=== PATIENT | female | born 1980 | race Caucasian/White ===

== ENCOUNTER → 2017-09-27 11:41 | Outpatient (CLI) | payer BC, SELFPAY ==
[2017-10-01 11:35] LABS: HPV Reflexed? NOT INDICATED
== END ==
PROVIDERS: Visit Provider Obstetrics & Gynecology
DX: Z12.4 Encounter for screening for malignant neoplasm of cervix (principal)
CPT/HCPCS: 88175; G0145

== ENCOUNTER → 2022-12-08 | Outpatient (CLI) | payer OTHER, SELFPAY ==
[2022-12-08 12:42] LABS: Absolute Lymphocyte Count 1.52 X10^3/uL (0.83-4.51); Absolute Neutrophil Count 2.8 X10^3/uL (2.0-7.7); Basophil# 0.02 X10^3/uL; Basophil% 0.4 % (0-1); Eosinophil# 0.08 X10^3/uL; Eosinophils% 1.7 % (0-5); Hematocrit 40.9 % (37-47); Hemoglobin 13.4 g/dL (12.0-15.0); Lymphocyte # 1.52 X10^3/ul (0.83-4.51); Lymphocyte % 31.6 % (19-41); Mean Corp Hgb Conc 32.8 g/dL (32-36); Mean Corpuscular Hgb 30.2 pg (27.0-32.0); Mean Corpuscular Volume 92.3 fL (81-99); Mean Platelet Vol. 9.9 fl (6.2-12.0); Monocyte# 0.34 X10^3/uL; Monocyte% 7.1 % (0-10); NRBC Flagged by Analyzer 0 % (0-5); Neutrophil # 2.84 X10^3/uL (2.7-7.7); Platelet Count 282 K/mm3 (150-450); RBC Distribution Width CV 12.3 % (11.6-14.6); RBC Distribution Width SD 41.9 fl (35.1-43.9); Red Blood Count 4.43 M/mm3 (4.2-5.4); White Blood Count 4.8 K/mm3 (4.4-11.0)
[2022-12-08 13:22] LABS: AST(SGOT) 18 U/L (15-37); Alanine Aminotransfer ALT/SGPT 28 U/L (13-56); Albumin, Serum 3.7 g/dL (3.2-5.0); Alkaline Phosphatase 49 U/L (45-117); Anion Gap 5 (5-15); BUN 14 mg/dL (7-18); BUN/Creat Ratio 19.7 RATIO (10-20); Calcium,Total 8.8 mg/dL (8.5-10.1); Chloride 108 mmol/L (98-107); Cholesterol 168 mg/dL (200); Creatinine, Serum 0.71 mg/dL (0.55-1.02); EST Glomerular Filtration Rate 96 mL/min (>60); Est Glom Filt Rate - Afr Amer 117 mL/min (>60); Globulin 3.6 g/dL (2.2-4.2); Glucose 108 mg/dL (74-106); High Density Lipoprotein 71 mg/dL; Potassium 4.1 mmol/L (3.5-5.1); Protein, Total 7.3 g/dL (6.4-8.2); Sodium Level 140 mmol/L (136-145); T4 Free Direct 1.11 ng/dL (0.76-1.46); Thyroid Stim Hormone (TSH) 2.24 uIU/mL (0.358-3.74); Triglycerides 41 mg/dL; Very Low Density Lipoprotein 8 mg/dL (5-40)
== END | disposition home or self-care (01) ==
LOC: BIMLAB 11:36
PROVIDERS: PCP Internal Medicine; Referring Provider Internal Medicine; Visit Provider Internal Medicine
DX: R00.2 Palpitations (principal)
CPT/HCPCS: 36415; 80053; 80061; 84439; 84443; 85025

== ENCOUNTER → 2022-12-22 | Outpatient (CLI) | payer OTHER, SELFPAY ==
--- NOTE | 2022-12-22 10:59 | BI_ITS ---
MAMMOGRAPHY - BILATERAL SCREENING REASON FOR EXAM: Female, 42 years old. Routine annual screening examination. PERTINENT HISTORY: Non-contributory. TECHNIQUE: Digital bilateral breast ashwini (3D mammographic acquisition) in the CC and MLO projections. 2-D mediolateral oblique (MLO) and craniocaudad (CC) views of both breasts were obtained. CAD: Full Field Digital Mammography with Computer Added Detection was performed. COMPARISON: None. Baseline examination. FINDINGS: Breast Composition: The breasts are extremely dense, which lowers the sensitivity of mammography. There are no dominant masses or suspicious calcifications. No other significant abnormalities are identified. BI/SCRN MAMM (CAD)W/ASHWINI BILAT IMPRESSION: Negative screening mammogram. Yearly followup mammogram recommended. (A) ASSESSMENT CATEGORY: BIRADS Category 1: Negative. A letter regarding these results will be sent to the patient by the facility within 30 days. Approximately 10% of breast cancers are not detected by mammography. A normal mammogram should not delay biopsy of a clinically suspicious abnormality. [id number] Electronically Signed: Juan Menjivar MD at 12:01 EDT ,
== END | disposition home or self-care (01) ==
LOC: OPBI 10:57
PROVIDERS: PCP Internal Medicine; Referring Provider Internal Medicine; Visit Provider Internal Medicine
DX: Z12.31 Encounter for screening mammogram for malignant neoplasm of breast (principal)
CPT/HCPCS: 77063; 77067

== ENCOUNTER 2023-03-03 17:57 | Emergency (ER) | payer OTHER, SELFPAY ==
[2023-03-03 17:59] VITALS: BP 141/94; PULSE 79; RESP 18; TEMP 36.6; O2SAT 98; BMI 31.1
--- NOTE | 2023-03-03 18:26 | EKG12_ITS ---
Test Reason : CP Blood Pressure : / mmHG Vent. Rate : 093 BPM Atrial Rate : 093 BPM P-R Int : 148 ms QRS Dur : 088 ms QT Int : 380 ms P-R-T Axes : 037 033 020 degrees QTc Int : 472 ms Normal sinus rhythm Normal ECG Confirmed by ELSIE GOMEZ, DEX ([id number]), index editor LOLA HORTON ([id number]) on 03/08/2023 8:32:09 AM Referred By: VALENTINO/PRATIBHA Confirmed By:EDU ZIMMERMAN MD
--- NOTE | 2023-03-03 18:32 | RAD_ITS ---
INDICATION: Chest pain EXAMINATION/TECHNIQUE: X-RAY - XR Chest 1 View COMPARISON: None FINDINGS: LUNGS: No consolidation, edema or effusion. No pneumothorax. MEDIASTINUM AND CARDIOVASCULAR STRUCTURES: Cardiac silhouette not enlarged. Central airways and mediastinal contour are unremarkable. RAD/Chest 1 View (Portable) IMPRESSION: No radiographic evidence of acute cardiopulmonary disease. Electronically Signed: Efrain Chavez MD at 19:06 EDT ,
[2023-03-03] MEDS: Aspirin 81 MG TAB.CHEW 324 MG PO (18:37)
[2023-03-03 18:55] LABS: Absolute Lymphocyte Count 2.14 X10^3/uL (0.83-4.51); Absolute Neutrophil Count 3.7 X10^3/uL (2.0-7.7); Basophil# 0.01 X10^3/uL; Basophil% 0.2 % (0-1); Eosinophil# 0.08 X10^3/uL; Eosinophils% 1.3 % (0-5); Hematocrit 38.2 % (37-47); Hemoglobin 13.1 g/dL (12.0-15.0); Lymphocyte # 2.14 X10^3/ul (0.83-4.51); Lymphocyte % 33.4 % (19-41); Mean Corp Hgb Conc 34.3 g/dL (32-36); Mean Corpuscular Hgb 31.7 pg (27.0-32.0); Mean Corpuscular Volume 92.5 fL (81-99); Mean Platelet Vol. 9.6 fl (6.2-12.0); Monocyte# 0.46 X10^3/uL; Monocyte% 7.2 % (0-10); NRBC Flagged by Analyzer 0 % (0-5); Neutrophil # 3.69 X10^3/uL (2.7-7.7); Neutrophil % 57.6 % (47-70); Platelet Count 280 K/mm3 (150-450); RBC Distribution Width CV 12.6 % (11.6-14.6); RBC Distribution Width SD 42.9 fl (35.1-43.9); Red Blood Count 4.13 M/mm3 (4.2-5.4); White Blood Count 6.4 K/mm3 (4.4-11.0)
[2023-03-03 19:16] LABS: Anion Gap 7 (5-15); BUN 12 mg/dL (7-18); BUN/Creat Ratio 15.3 RATIO (10-20); Calcium,Total 8.6 mg/dL (8.5-10.1); Chloride 106 mmol/L (98-107); Creatinine, Serum 0.78 mg/dL (0.55-1.02); EST Glomerular Filtration Rate 86 mL/min (>60); Est Glom Filt Rate - Afr Amer 104 mL/min (>60); Estimated Creatinine Clearance 78.52 ml/min; Glucose 111 mg/dL (74-106); Potassium 3.7 mmol/L (3.5-5.1); Sodium Level 138 mmol/L (136-145); Troponin-I HS < 3 pg/mL (3.0-54.0)
--- NOTE | 2023-03-03 19:17 | ED.VIS.CHEST ---
HPI History of Present Illness Chief Complaint: Chest Pain Informant: patient Onset/Context/Timing Onset: Weeks (1) Activity at onset: sudden Timing: Intermittent Quality: Positive for Sharp and - (Fluttering) Location: Left Chest and - (Left shoulder, left arm) Worsened By: Nothing Relieved By: Nothing Associated Symptoms: Positive for Lightheadedness and Acid Reflux; Negative for Nausea, Vomiting, Diaphoresis, Dyspnea, Cough, Fever or Palpitations Narrative Narrative: Patient presents with chest pain that has been intermittent over the past week. Patient states it comes on rather suddenly. Patient describes it as sharp pain. Patient states it is over the left upper chest and radiates into her left arm and left shoulder area. Patient also states she has an occasional fluttering sensation. Patient states nothing makes it better and nothing makes it worse. Patient admits to some lightheadedness and acid reflux symptoms. Patient denies any nausea or vomiting. Patient denies any cough or shortness of breath. Patient denies any cardiac or PE risk factors. CVD Risk Factors: Negative for Hypertension, Diabetes, Hypercholesterolemia, Family History 1' </=55 or Smoking PE Risk Factors: Negative for Recent Travel/Surgery, Recent Immobilization, Prior DVT or PE, Cancer or OCP + Smoking + >/=35 PFSH PFSH Medical History Health care maintenance Intermittent chest pain Obesity (BMI 30.0-34.9) Palpitations Home Medications NK 01/19/23 [History Last Taken Unknown] Allergy/AdvReac Type Severity Reaction Status Date / Time No Known Allergies Allergy Verified 03/03/23 18:00 Family History Grandmother Colon cancer Mother Diabetes Grandfather Myocardial infarction, Onset Age: 73 CVA (cerebral vascular accident) Surgical History History of dilation and curettage Social History Smoking Status: Never smoker alcohol intake: current alcohol intake frequency: 3 or more drinks per day Alcohol type: other substance use type: does not use what type of physical activity do you participate in: weight training and other details: CARDIO frequency: 3-4 times per week seatbelt use: always do you feel safe at home: Yes ROS ROS ED Constitutional Constitutional ED: Denies chills or fever(s) Eyes Eyes: Denies blurry vision or change in vision ENT ENT ED: Denies rhinorrhea or sore throat Cardiovascular Cardiovascular: Reports chest pain and palpitations Respiratory/Chest Respiratory/Chest: Denies cough or dyspnea Gastrointestinal Gastrointestinal: Denies abdominal pain, nausea or vomiting Genitourinary Genitourinary ED: Denies dysuria or hematuria Musculoskeletal Musculoskeletal: Reports back pain and neck pain Integumentary Denies abscess or rash Neurologic Neurologic: Denies headache(s) or weakness Allergic/Immunologic Allergic/Immunologic ED: Denies mouth swelling or urticaria EXAM Physical Exam Const Vital Signs: 03/03/23 17:59 03/03/23 18:39 03/03/23 19:31 Temperature 98 F Temperature Source Temporal Pulse Rate 79 84 Respiratory Rate 18 18 Blood Pressure 141/94 H 122/80 H Blood Pressure Mean 109 Pulse Ox 98 98 Oxygen Delivery Method Room Air Room Air Positive well nourished, well developed and obese General Appearance ED: well developed and NAD Nutritional Appearance: obese HEENT normocephalic and atraumatic Eyes PERRL and EOMs intact bilaterally Neck supple and no JVD Chest Wall palpation of chest normal Resp normal respiratory effort and clear to auscultation bilaterally Effort and Inspection: Negative for respiratory distress Cardio regular rate, regular rhythm and no murmurs GI normal to inspection, nondistended, normoactive bowel sounds, soft to palpation, non-tender and non-distended Extremity normal to inspection General Extremety ED: Negative for edema or tenderness General Extremity: Negative for edema Neuro oriented x3, CN's II-XII intact bilaterally and no sensory deficits noted Sensorium / Orientation: awake and alert Motor Exam: strength 5/5 throughout Psych mental status grossly normal Heart Score History: Moderately Suspicious ECG: Normal Age: </= 45 years Risk Factors: No Risk Factors Troponin: </= Normal Limit Score: 1 MDM MDM MDM Narrative Medical decision making narrative: Differential diagnosis includes cardiac dysrhythmia, cardiac ischemia, anxiety, electrolyte abnormality, anemia, pneumonia, pneumothorax, and musculoskeletal pain. Patient is PERC negative and has a Wells score of 0. Therefore, I do not feel this is from a pulmonary embolism. CBC will be obtained to assess for leukocytosis and anemia. Basic metabolic profile will be obtained to assess for electrolyte abnormality and renal function. High-sensitivity troponin will be obtained to assess for cardiac ischemia. Chest x-ray will be obtained to assess for pneumonia and pneumothorax. EKG will be obtained to assess for cardiac dysrhythmia and cardiac ischemia. Lab Data Attestation: I reviewed the patient's lab results. Lab results narrative: CBC was reviewed and was within normal limits. Basic metabolic profile was reviewed and was within normal limits. High-sensitivity troponin was reviewed and was normal at less than 3. Labs: Laboratory Results - last 24 hr 03/03/23 18:10 WBC 6.4 RBC 4.13 L Hgb 13.1 Hct 38.2 MCV 92.5 MCH 31.7 MCHC 34.3 RDW Std Deviation 42.9 RDW Coeff of Sheeba 12.6 Plt Count 280 MPV 9.6 Immature Gran % (Auto) 0.300 Neut % (Auto) 57.6 Lymph % (Auto) 33.4 Hinds % (Auto) 7.2 Eos % (Auto) 1.3 Baso % (Auto) 0.2 Absolute Neuts (auto) 3.7 Absolute Lymphs (auto) 2.14 Nucleated RBC % 0 Sodium 138 Potassium 3.7 Chloride 106 Carbon Dioxide 25.0 Anion Gap 7 BUN 12 Creatinine 0.78 Estim Creat Clear Calc 78.52 Est GFR (MDRD) Af Amer 104 Est GFR (MDRD) Non-Af 86 BUN/Creatinine Ratio 15.3 Glucose 111 H Calcium 8.6 Troponin I High Sens < 3 L Radiography Chest X-Ray - ED: 1 View, Read by ED Physician, Read by Radiologist and No Acute Disease Diagnostic Testing: Clinical Impression(s) from Imaging Studies Chest X-Ray 03/03/23 18:32 IMPRESSION: No radiographic evidence of acute cardiopulmonary disease. Electronically Signed: Efrain Chavez MD at 19:06 EDT , Portable 1 view chest x-ray was obtained. On my independent interpretation, lung ruano are clear. There is normal cardiac silhouette. Bony thorax is normal. There is no acute process noted. Radiologist also interpreted the x-ray and agrees. EKG Initial EKG: Attestation: I personally reviewed and interpreted this EKG as follows: Interpretation: Sinus Rhythm (93) and No Acute Injury Pattern Comments: EKG was obtained. On my independent interpretation, it showed a normal sinus rhythm with a rate of 93. PA interval, QRS interval, and QTc intervals were all normal. Finley was normal. There are no acute ST or T wave changes. Prior EKG tracings: not available for review Prior: No Prior Treatment and Re-Evaluation :: Patient was given aspirin here. Patient was advised of her findings. Patient has a HEART score of 1. Patient was advised that this is low risk for acute cardiac event. Patient was instructed to follow-up with her primary care physician for further evaluation in 5 to 7 days. Patient understood and was agreeable with the plan. All questions were answered. Discharge Plan Triage Chief Complaint: Chest Pain ED Provider: Carlos Alberto Figueroa Dx/Rx/DC Orders Clinical Impression: Intermittent chest pain, Obesity (BMI 30.0-34.9) Instructions: ED Chest Pain, Uncertain Cause Prescriptions: No Action NK Primary Care Provider: Ronak Gant Referrals: Ronak Gant MD [Primary Care Provider] - 5-7 Days Disposition Disposition: Home, Self Care Discharge Date/Time: 03/03/23 19:32
[2023-03-03 19:31] VITALS: BP 122/80; PULSE 84; RESP 18; O2SAT 98
== END 2023-03-03 19:32 | disposition home or self-care (01) ==
PROVIDERS: Emergency Provider Emergency Medicine; PCP Internal Medicine; Visit Provider Emergency Medicine
DX: R07.9 Chest pain, unspecified (principal); E66.9 Obesity, unspecified; R42 Dizziness and giddiness; R00.2 Palpitations; M54.9 Dorsalgia, unspecified; M54.2 Cervicalgia
CPT/HCPCS: 71045; 80048; 84484; 85025; 93005; 99285; A4216

== ENCOUNTER → 2023-10-02 | Outpatient (CLI) | payer OTHER, SELFPAY ==
--- OUTSIDE RECORDS SUMMARY | 2023-10-03 00:31 | XMS RPT_ITS | CCD ---
Author Name Unknown Address [address] [place] [address] Organization [facility] Care Team Providers Care Reconciliation Accountant Name Role Phone PACO MAYEN DO Admitting Unavailable FAHEEM, PACO PETTIT Attending Unavailable PACO MAYEN DO Primary Care Unavailable NO, DOCTOR ON Referring Unavailable NO, DOCTOR ON Consulting Unavailable Problems Problem Classification Problem Date Documented Da te Episodic/Chronic External cause codes: Struck by; against (1 source) Struck by baseball, initial encounter; Translations: [Struck by baseball, initial encounter] Onset: 11-13-2018 Open wounds of head; neck; and trunk (3 sources) Laceration without foreign body of lip, initial encounter; Translations: [Laceration without foreign body of lip, initial encounter] Onset: 11-13-2018 Episodic Results Test Name Value Interpretation Reference Range Facil ity Encounters Encounter Date Encounter Type Care Provider Facility Start: 11-13-2018 End: 11-13-2018 Emergency department patient visit PACO [facility]ESEJ[facility] Payers Date Payer Category Payer Unknown [id number] Unknown [id number] Summary Purpose Family History No Family History Records Found Advance Directives No Advanced Directives Records Found Additional Source Comments INFORMATION SOURCE (unrecogn ized section and content) FOR RECORDS PERTAINING TO PATIENTS WHO ARE OR HAVE BEEN ENROLLED IN A CHEMICAL DEPENDENCY/SUBSTANCEABUSE PROGRAM, SOME INFORMATION MAY BE OMITTED. This clinical summary was aggregated from multiple sources. Caution should be exercised in using it in the provision of clinical care. This summary normalizes information from multiple sources, and as a consequence, information in this document may materially change the coding, format and clinical context of patient data. In addition, data may be omitted in some cases. CLINICAL DECISIONS SHOULD BE BASED ON THE PRIMARY CLINICAL RECORDS. [facility], [facility]. provides no warranty or guarantee of the accuracy or completeness of information in this document.
[2023-10-07 17:07] LABS: HPV APTIMA, High Risk Negative (Negative)
== END | disposition home or self-care (01) ==
PROVIDERS: PCP Internal Medicine; Visit Provider Advanced Practice Midwife
DX: Z12.4 Encounter for screening for malignant neoplasm of cervix (principal)
CPT/HCPCS: 87624; 88175; G0145

== ENCOUNTER → 2024-01-03 | Outpatient (CLI) | payer OTHER, SELFPAY ==
--- NOTE | 2024-01-03 12:13 | BI_ITS ---
MAMMOGRAPHY - BILATERAL SCREENING REASON FOR EXAM: Female, 43 years old. Routine annual screening examination. PERTINENT HISTORY: Non-contributory. TECHNIQUE: Digital bilateral breast ashwini (3D mammographic acquisition) in the CC and MLO projections. 2-D mediolateral oblique (MLO) and craniocaudad (CC) views of both breasts were obtained. CAD: Full Field Digital Mammography with Computer Added Detection was performed. COMPARISON: Comparison is made with prior study dated December 22, 2022. FINDINGS: Breast Composition: The breasts are extremely dense, which lowers the sensitivity of mammography. There are no dominant masses or suspicious calcifications. No other significant abnormalities are identified. There has been no significant change since the prior study. BI/SCRN MAMM (CAD)W/ASHWINI BILAT IMPRESSION: Stable bilateral screening mammogram. Yearly follow-up mammogram recommended. (A) ASSESSMENT CATEGORY: BIRADS Category 1: Negative. A letter regarding these results will be sent to the patient by the facility within 30 days. Approximately 10% of breast cancers are not detected by mammography. A normal mammogram should not delay biopsy of a clinically suspicious abnormality. [id number] Electronically Signed: Juan Menjivar MD at 13:17 EDT ,
== END | disposition home or self-care (01) ==
LOC: OPBI 12:13
PROVIDERS: PCP Internal Medicine; Referring Provider Internal Medicine; Visit Provider Internal Medicine
DX: Z12.31 Encounter for screening mammogram for malignant neoplasm of breast (principal)
CPT/HCPCS: 77063; 77067

== ENCOUNTER → 2024-06-18 | Outpatient (CLI) | payer OTHER, SELFPAY ==
[2024-06-18 13:10] LABS: Absolute Lymphocyte Count 1.48 X10^3/uL (0.83-4.51); Absolute Neutrophil Count 3.7 X10^3/uL (2.0-7.7); Basophil# 0.02 X10^3/uL; Basophil% 0.3 % (0-1); Eosinophil# 0.12 X10^3/uL; Eosinophils% 2.1 % (0-5); Hematocrit 40.6 % (37-47); Hemoglobin 13.2 g/dL (12.0-15.0); Lymphocyte # 1.48 X10^3/ul (0.83-4.51); Lymphocyte % 25.8 % (19-41); Mean Corp Hgb Conc 32.5 g/dL (32-36); Mean Corpuscular Hgb 30.1 pg (27.0-32.0); Mean Corpuscular Volume 92.7 fL (81-99); Mean Platelet Vol. 9.6 fl (6.2-12.0); Monocyte# 0.44 X10^3/uL; Monocyte% 7.7 % (0-10); NRBC Flagged by Analyzer 0 % (0-5); Neutrophil # 3.67 X10^3/uL (2.7-7.7); Neutrophil % 63.9 % (47-70); Platelet Count 292 K/mm3 (150-450); RBC Distribution Width CV 12.1 % (11.6-14.6); RBC Distribution Width SD 41.6 fl (35.1-43.9); Red Blood Count 4.38 M/mm3 (4.2-5.4); White Blood Count 5.7 K/mm3 (4.4-11.0)
[2024-06-18 13:13] LABS: Vitamin B12 243 pg/mL (211-911); Vitamin D,25 Hydroxy 28.9 ng/mL
[2024-06-18 13:28] LABS: AST(SGOT) 14 U/L (15-37); Alanine Aminotransfer ALT/SGPT 19 U/L (13-56); Albumin, Serum 3.6 g/dL (3.2-5.0); Alkaline Phosphatase 55 U/L (45-117); Anion Gap 6 (5-15); BUN 12 mg/dL (7-18); BUN/Creat Ratio 17.6 RATIO (10-20); Calcium,Total 8.9 mg/dL (8.5-10.1); Chloride 107 mmol/L (98-107); Cholesterol 192 mg/dL (200); Creatinine, Serum 0.68 mg/dL (0.55-1.02); EST Glomerular Filtration Rate 100 mL/min (>60); Est Glom Filt Rate - Afr Amer 121 mL/min (>60); Globulin 3.6 g/dL (2.2-4.2); Glucose 95 mg/dL (74-106); High Density Lipoprotein 66 mg/dL; Potassium 3.9 mmol/L (3.5-5.1); Protein, Total 7.2 g/dL (6.4-8.2); Sodium Level 139 mmol/L (136-145); Triglycerides 106 mg/dL; Very Low Density Lipoprotein 21 mg/dL (5-40)
[2024-06-18 13:39] LABS: Hemoglobin A1c 5.5 % (3.8-5.6)
== END | disposition home or self-care (01) ==
LOC: VSLAB 10:01
PROVIDERS: PCP Nurse Practitioner Family; Visit Provider Nurse Practitioner Family
DX: F41.9 Anxiety disorder, unspecified (principal); E66.9 Obesity, unspecified
CPT/HCPCS: 36415; 80053; 80061; 82306; 82607; 83036; 84443; 85025

== ENCOUNTER → 2025-01-16 | Outpatient (CLI) | payer OTHER, SELFPAY ==
[2025-01-16 15:21] LABS: Absolute Lymphocyte Count 1.68 X10^3/uL (0.83-4.51); Absolute Neutrophil Count 3.4 X10^3/uL (2.0-7.7); Basophil# 0.03 X10^3/uL; Basophil% 0.5 % (0-1); Eosinophil# 0.12 X10^3/uL; Eosinophils% 2.1 % (0-5); Hematocrit 39.6 % (37-47); Hemoglobin 12.9 g/dL (12.0-15.0); Lymphocyte # 1.68 X10^3/ul (0.83-4.51); Lymphocyte % 29.6 % (19-41); Mean Corp Hgb Conc 32.6 g/dL (32-36); Mean Corpuscular Hgb 30.4 pg (27.0-32.0); Mean Corpuscular Volume 93.2 fL (81-99); Mean Platelet Vol. 9.8 fl (6.2-12.0); Monocyte# 0.43 X10^3/uL; Monocyte% 7.6 % (0-10); NRBC Flagged by Analyzer 0 % (0-5); Neutrophil # 3.41 X10^3/uL (2.7-7.7); Platelet Count 310 K/mm3 (150-450); RBC Distribution Width SD 44.2 fl (35.1-43.9); Red Blood Count 4.25 M/mm3 (4.2-5.4); White Blood Count 5.7 K/mm3 (4.4-11.0)
[2025-01-16 17:32] LABS: ALB/GLOB Ratio 1.5 RATIO (0.9-2.4); AST(SGOT) 16 U/L (<=31); Alanine Aminotransfer ALT/SGPT 14 U/L (<=34); Albumin, Serum 4.2 g/dL (3.5-5.0); Alkaline Phosphatase 42 U/L (35-104); Anion Gap 9 (5-15); BUN 9 mg/dL (4-19); BUN/Creat Ratio 12.6 RATIO (10-20); Carbon Dioxide 24.8 mmol/L (21.0-32.0); Chloride 103 mmol/L (98-108); Cholesterol 179 mg/dL (<=200); Creatinine, Serum 0.74 mg/dL (0.70-1.20); EST Glomerular Filtration Rate 104 (>60); Globulin 2.8 g/dL (2.2-4.2); Glucose 103 mg/dL (70-99); High Density Lipoprotein 59 mg/dL; Low Density Lipoprotein Calc. 108 mg/dL; Potassium 4.7 mmol/L (3.3-5.1); Protein, Total 6.9 g/dL (5.9-8.4); Sodium Level 137 mmol/L (133-145); Total Bilirubin 0.42 mg/dL (0.00-1.30); Triglycerides 64 mg/dL; Very Low Density Lipoprotein 13 mg/dL (5-40); Vitamin B12 353 pg/mL (180-914); Vitamin D,25 Hydroxy 39.6 ng/mL (30-100); cholesterol:hdl ratio screen 3.05
--- OUTSIDE RECORDS SUMMARY | 2025-01-16 19:05 | XMS RPT_ITS | CCD ---
Author Organization [facility] Care Team Providers Care Air Bag Curer Name Role Phone PACO MAYEN DO Admitting Unavailable PACO MAYEN DO Attending Unavailable PACO MAYEN DO Primary Care Unavailable NO, DOCTOR ON Referring Unavailable NO, DOCTOR ON Consulting Unavailable Dr. Ronak Gant Attending Provider [phone] Dr. Ronak Gant Primary Care Provider [phone] Dr. Ronak Gant Referring Provider [phone] Dr. Ronak Gant Primary Care Provider [phone]) Dr. Ronak Gant Attending Provider [phone] Dr. Ronak Gant Referring Provider [phone] SARABJIT Alcocer Attending Provider [phone] Oleghe, Efewongbe Primary Care Unavailable Oleghe, Efewongbe Attending Unavailable Oleghe, Efewongbe Referring Unavailable Sadie Mcbride Primary Care Unavailabl e Sadie Mcbride Attending Unavailabl e Oleghe, Efewongbe Primary Care Unavailable Oleghe, Efewongbe Attending Unavailable Oleghe, Efewongbe Referring Unavailable Oleghe, Efewongbe Primary Care Unavailable Bhargavi Alcocer Attending Unavailable Oleghe, Efewongbe Referring Unavailable Oleghe, Efewongbe Primary Care Unavailable Bhargavi Alcocer Attending Unavailable Oleghe, Efewongbe Referring Unavailable Oleghe, Efewongbe Primary Care Unavailable Oleghe, Efewongbe Attending Unavailable Everghe Dr. Ronak GOMEZ Attending Provider [phone] Dr. Ronak Gant MD Referring Provider [phone]) Roldan GAS ROLLER OPERATOR-CSadie Primary Care Provider Alfreda GOMEZ, Dr. Simons Primary Care Provider Medications Current Medications Medication Drug Class(es) Dates Sig (Normalized) Sig (Original) Mahtomedi (Nk) (1 source) Start: 01-19-2023 Mahtomedi (Nk) Active January 19, 2023 12:00am Semaglutide 2.5 mg/mL solution (1 source) Start: 01-16-2025 Semaglutide 2.5 mg/mL solution Active mg SC .WEEKLY January 16, 2025 12:00am Completed/Discontinued Medications Medication Drug Class(es) Dates Sig (Normalized) Sig (Original) escitalopram 10 mg oral tablet (4 sources) Serotonin Reuptake Inhibitor Start: 04-13-2023 End: 12-10-2023 take 1 tablet by mouth once daily Escitalopram Oxalate 10 mg tablet Discontinued 10 mg PO DAILY April 13, 2023 10:38am December 10, 2023 1:12pm Start: 03-09-2023 End: 04-13-2023 take 1 tablet by mouth once daily Escitalopram Oxalate (Lexapro) 5 mg tablet Discontinued 5 mg PO DAILY 60 March 09, 2023 12:00am April 13, 2023 10:39am Vit,Fuws85-Lktr-Ialyu (Prenatabs Fa ) 1 TABLET tablet (5 sources) Start: 02-16-2014 End: 12-08-2022 take 1 tablet by mouth once daily Vit,Hahr33-Bvet-Llinu (Prenatabs Fa ) 1 TABLET tablet Discontinued 1 {tbl} PO DAILY February 16, 2014 12:00am December 08, 2022 10:32am Start: 02-16-2014 End: 12-08-2022 take 1 tablet by mouth once daily Vit,Edxv13-Orha-Tgrnw (Prenatab s Fa ) 1 TABLET tablet Discontinued 1 TABLET PO DAILY February 15, 2014 11:00pm December 08, 2022 9:32am Start: 02-16-2014 End: 12-08-2022 take 1 tablet by mouth once daily Vit,Jrri34-Vtbg-Vdewt (Prenatab s Fa ) 1 TABLET tablet Discontinued 1 TABLET PO DAILY February 16, 2014 12:00am December 08, 2022 10:32am Problems Active Problems Problem Classification Problem Date Documented Da te Episodic/Chronic Anxiety disorders (4 sources) Generalized anxiety disorder; Translations: [Generalized anxiety disorder] Onset: 07-07-2024 03-09-2023 Chronic Cardiac dysrhythmias (10 sources) Palpitations; Translations: [Palpitations] 12-08-2022 Episodic External cause codes: Struck by; against (1 source) Struck by baseball, initial encounter; Translations: [Struck by baseball, initial encounter] Onset: 11-13-2018 Nonspecific chest pain (8 sources) Chest pain; Translations: [Chest pain, unspecified] 12-08-2022 Episodic Nutritional deficiencies (1 source) Vitamin deficiency; Translations: [Vitamin deficiency, unspecified] 01-16-2025 Episodic Open wounds of head; neck; and trunk (3 sources) Laceration without foreign body of lip, initial encounter; Translations: [Laceration without foreign body of lip, initial encounter] Onset: 11-13-2018 Episodic Other nutritional; endocrine; and metabolic disorders (5 sources) Obese class I; Translations: [Obesity, unspecified] 12-08-2022 Chronic Other nutritional; endocrine; and metabolic disorders (4 sources) Obesity, unspecified; Translations: [Obesity, unspecified] 12-08-2022 Chronic Spondylosis; intervertebral disc disorders; other back problems (2 sources) Neck pain; Translations: [Cervicalgia] 03-09-2023 Episodic Unclassified (1 source) Z00.00 - Encounter for general adult medical examination without abnormal findings Past or Other Problems Problem Classification Problem Date Documented Da te Episodic/Chronic Other screening for suspected conditions (not mental disorders or infectious disease) (2 sources) Encounter for screening mammogram for malignant neoplasm of breast; Translations: [Encounter for screening for malignant neoplasm of cervix] Onset: 10-06-2023 Episodic Results Test Name Value Interpretation Reference Range Facility CBC W/Diff, Automatedon 11-1 Absolute Lymph 1.48 X10 3/uL Normal 0.83-4.51 [facility] Comment on above: Performed By: #### L 500.4100, L503.0105, L506.1000, L501.9985, L100.0100, L501.9520, L500.4050 #### [facility] [address] [place], [address] Absolute Neut 3.7 X10 3/uL Normal 2.0-7.7 [facility] Comment on above: Performed By: #### L 500.4100, L503.0105, L506.1000, L501.9985, L100.0100, L501.9520, L500.4050 #### [facility] [address] [place], [address] Basophils/100 WBC (Bld) 0.3 % Normal 0-1 [facility] Comment on above: Performed By: #### L 500.4100, L503.0105, L506.1000, L501.9985, L100.0100, L501.9520, L500.4050 #### [facility] [address] [facility] [place], [address] Eosinophils/100 WBC (Bld) 2.1 % Normal 0-5 [facility] Comment on above: Performed By: #### L 500.4100, L503.0105, L506.1000, L501.9985, L100.0100, L501.9520, L500.4050 #### [facility] [address] [facility] [place], [address] Erythrocyte distribution width (RBC) [Ratio] 12.1 % Normal 11.6-14.6 [facility] Comment on above: Performed By: #### L 500.4100, L503.0105, L506.1000, L501.9985, L100.0100, L501.9520, L500.4050 #### [facility] [address] [place], [address] Hematocrit (Bld) [Volume fraction] 40.6 % Normal 37-47 [facility] Comment on above: Performed By: #### L 500.4100, L503.0105, L506.1000, L501.9985, L100.0100, L501.9520, L500.4050 #### [facility] [address] [place], [address] Hemoglobin (Bld) [Mass/Vol] 13.2 g/dL Normal 12.0-15.0 [facility] Comment on above: Performed By: #### L 500.4100, L503.0105, L506.1000, L501.9985, L100.0100, L501.9520, L500.4050 #### [facility] [address] [place], [address] IG% 0.200 Normal 0.0-0.9 [facility] Comment on above: Result Comment: IG% - Immature Granulocytes (promyelocytes, myelocytes and metamyelocytes) > 1% indicates that a LEFT SHIFT is Present. Performed By: #### L 500.4100, L503.0105, L506.1000, L501.9985, L100.0100, L501.9520, L500.4050 #### [facility] [address] [place], [address] Lymphocytes/100 WBC (Bld) 25.8 % Normal 19-41 [facility] Comment on above: Performed By: #### L 500.4100, L503.0105, L506.1000, L501.9985, L100.0100, L501.9520, L500.4050 #### [facility] [address] [place], [address] MCH (RBC) [Entitic mass] 30.1 pg Normal 27.0-32.0 [facility] Comment on above: Performed By: #### L 500.4100, L503.0105, L506.1000, L501.9985, L100.0100, L501.9520, L500.4050 #### [facility] [address] [place], [address] MCHC (RBC) [Mass/Vol] 32.5 g/dL Normal 32-36 [facility] Comment on above: Performed By: #### L 500.4100, L503.0105, L506.1000, L501.9985, L100.0100, L501.9520, L500.4050 #### [facility] [address] [place], [address] MCV (RBC) [Entitic vol] 92.7 fL Normal 81-99 [facility] Comment on above: Performed By: #### L 500.4100, L503.0105, L506.1000, L501.9985, L100.0100, L501.9520, L500.4050 #### [facility] [address] [place], [address] Monocytes/100 WBC (Bld) 7.7 % Normal 0-[address] [facility] Comment on above: Performed By: #### L 500.4100, L503.0105, L506.1000, L501.9985, L100.0100, L501.9520, L500.4050 #### [facility] [address] [place], [address] Neutrophils/100 WBC (Bld) 63.9 % Normal 47-70 [facility] Comment on above: Performed By: #### L 500.4100, L503.0105, L506.1000, L501.9985, L100.0100, L501.9520, L500.4050 #### [facility] [address] [place], [address] Nucleated RBC (Bld) [#/Vol] 0 10*3/uL Normal 0-5 [facility] Comment on above: Performed By: #### L 500.4100, L503.0105, L506.1000, L501.9985, L100.0100, L501.9520, L500.4050 #### [facility] [address] [place], [address] Platelet mean volume (Bld) [Entitic vol] 9.6 fL Normal 6.2-12.0 [facility] Comment on above: Performed By: #### L 500.4100, L503.0105, L506.1000, L501.9985, L100.0100, L501.9520, L500.4050 #### [facility] [address] [place], [address] Platelets (Bld) [#/Vol] 292 10*3/uL Normal 150-450 [facility] Comment on above: Performed By: #### L 500.4100, L503.0105, L506.1000, L501.9985, L100.0100, L501.9520, L500.4050 #### [facility] [address] [place], [address] RBC (Bld) [#/Vol] 4.38 10*6/uL Normal 4.2-5.4 [facility] Comment on above: Performed By: #### L 500.4100, L503.0105, L506.1000, L501.9985, L100.0100, L501.9520, L500.4050 #### [facility] [address] [place], [address] RDW SD 41.6 fl Normal 35.1-43.9 [facility] Comment on above: Performed By: #### L 500.4100, L503.0105, L506.1000, L501.9985, L100.0100, L501.9520, L500.4050 #### [facility] [address] [place], [address] WBC (Bld) [#/Vol] 5.7 10*3/uL Normal 4.4-11.0 [facility] Comment on above: Performed By: #### L 500.4100, L503.0105, L506.1000, L501.9985, L100.0100, L501.9520, L500.4050 #### [facility] [address] [place], [address] Comprehensive Metabolic Prof ilon 06-18-2024 Albumin [Mass/Vol] 3.6 g/dL Normal 3.2-5.0 [facility] Comment on above: Performed By: #### L 500.4100, L503.0105, L506.1000, L501.9985, L100.0100, L501.9520, L500.4050 #### [facility] [address] [place], [address] Albumin/Globulin [Mass ratio] 1.0 {ratio} Normal 0.9-2.4 [facility] Comment on above: Performed By: #### L 500.4100, L503.0105, L506.1000, L501.9985, L100.0100, L501.9520, L500.4050 #### [facility] [address] [place], [address] ALK P 55 U/L Normal 45-117 [facility] Comment on above: Performed By: #### L 500.4100, L503.0105, L506.1000, L501.9985, L100.0100, L501.9520, L500.4050 #### [facility] [address] [place], [address] ALT [Catalytic activity/Vol] 19 U/L Normal 13-56 [facility] Comment on above: Performed By: #### L 500.4100, L503.0105, L506.1000, L501.9985, L100.0100, L501.9520, L500.4050 #### [facility] [address] [place], [address] AST [Catalytic activity/Vol] 14 U/L Low 15-37 [facility] Comment on above: Performed By: #### L 500.4100, L503.0105, L506.1000, L501.9985, L100.0100, L501.9520, L500.4050 #### [facility] [address] [place], [address] Bilirubin [Mass/Vol] 0.40 mg/dL Normal 0.20-1.00 [facility] Comment on above: Result Comment: For patients on eltrombopag therapy, use of Dimension [place] TBIL is not recommended. Performed By: #### L 500.4100, L503.0105, L506.1000, L501.9985, L100.0100, L501.9520, L500.4050 #### [facility] [address] [place], [address] BUN/CRE 17.6 RATIO Normal 10-20 [facility] Comment on above: Performed By: #### L 500.4100, L503.0105, L506.1000, L501.9985, L100.0100, L501.9520, L500.4050 #### [facility] [address] [place], [address] CA,Total 8.9 mg/dL Normal 8.5-10.1 [facility] Comment on above: Performed By: #### L 500.4100, L503.0105, L506.1000, L501.9985, L100.0100, L501.9520, L500.4050 #### [facility] [address] [place], [address] Chloride [Moles/Vol] 107 mmol/L Normal 98-107 [facility] Comment on above: Performed By: #### L 500.4100, L503.0105, L506.1000, L501.9985, L100.0100, L501.9520, L500.4050 #### [facility] [address] [place], [address] CO2 [Moles/Vol] 27.0 mmol/L Normal 21.0-32.0 [facility] Comment on above: Performed By: #### L 500.4100, L503.0105, L506.1000, L501.9985, L100.0100, L501.9520, L500.4050 #### [facility] [address] [place], [address] (428) Creatinine [Mass/Vol] 0.68 mg/dL Normal 0.55-1.02 [facility] Comment on above: Result Comment: The validity of the calculated GFR GFRAA in patients over 70 years has not been determined. Clinical correlation is essential. Performed By: #### L 500.4100, L503.0105, L506.1000, L501.9985, L100.0100, L501.9520, L500.4050 #### [facility] [address] [place], [address] (218 EST GFR - AA 121 mL/min Normal >60 [facility] Comment on above: Result Comment: Afri can Scottish GFR Calc Performed By: #### L 500.4100, L503.0105, L506.1000, L501.9985, L100.0100, L501.9520, L500.4050 #### [facility] [address] [place], [address] (091) GAP 6 Normal 5-15 [facility] Comment on above: Performed By: #### L 500.4100, L503.0105, L506.1000, L501.9985, L100.0100, L501.9520, L500.4050 #### [facility] [address] [place], [place], [address] (102 GFR/1.73 sq M.predicted among non-blacks MDRD (S/P/Bld) [Vol rate/Area] 100 mL/min/{1.73_m2} Normal >60 [facility] Comment on above: Result Comment: Non- GFR Calc Performed By: #### L 500.4100, L503.0105, L506.1000, L501.9985, L100.0100, L501.9520, L500.4050 #### [facility] [address] [place], [address] Globulin (S) [Mass/Vol] 3.6 g/dL Normal 2.2-4.[address] [facility] Comment on above: Performed By: #### L 500.4100, L503.0105, L506.1000, L501.9985, L100.0100, L501.9520, L500.4050 #### [facility] [address] [place], [address] Glucose [Mass/Vol] 95 mg/dL Normal 74-106 [facility] Comment on above: Performed By: #### L 500.4100, L503.0105, L506.1000, L501.9985, L100.0100, L501.9520, L500.4050 #### [facility] [address] [place], [address] Potassium [Moles/Vol] 3.9 mmol/L Normal 3.5-5.1 [facility] Comment on above: Performed By: #### L 500.4100, L503.0105, L506.1000, L501.9985, L100.0100, L501.9520, L500.4050 #### [facility] [address] [place], [address] Sodium [Moles/Vol] 139 mmol/L Normal 136-145 [facility] Comment on above: Performed By: #### L 500.4100, L503.0105, L506.1000, L501.9985, L100.0100, L501.9520, L500.4050 #### [facility] [address] [place], [address] T PROT 7.2 g/dL Normal 6.4-8.2 [facility] Comment on above: Performed By: #### L 500.4100, L503.0105, L506.1000, L501.9985, L100.0100, L501.9520, L500.4050 #### [facility] [address] [place], [address] Urea nitrogen [Mass/Vol] 12 mg/dL Normal 7-18 [facility] Comment on above: Performed By: #### L 500.4100, L503.0105, L506.1000, L501.9985, L100.0100, L501.9520, L500.4050 #### [facility] [address] [place], [address] Hemoglobin A1con 06-18-2024 HbA1c (Bld) [Mass fraction] 5.5 % Normal 3.8-5.6 [facility] Comment on above: Result Comment: Norm al < 5.7 % Prediabetic 5.7 - 6.4 % Diabetic >or= 6.5 % Please note range changes. Performed By: #### L 500.4100, L503.0105, L506.1000, L501.9985, L100.0100, L501.9520, L500.4050 #### [facility] [address] [place], [address] Lipid Profileon 06-18-2024 Cholesterol [Mass/Vol] 192 mg/dL Normal 200 [facility] Comment on above: Result Comment: <200 mg/dL Desirable 200-240 mg/dL Borderline >240 mg/dL High Risk Performed By: #### L 500.4100, L503.0105, L506.1000, L501.9985, L100.0100, L501.9520, L500.4050 #### [facility] [address] [place], [address] Cholesterol in HDL [Mass/Vol] 66 mg/dL Normal [facility] Comment on above: Result Comment: The drugs N-Acetylcysteine and Metamizole may falsely depress this assay. Reference Range HDL <40 mg/dL Low HDL Cholesterol HDL >or= 60 mg/dL High HDL Cholesterol Performed By: #### L 500.4100, L503.0105, L506.1000, L501.9985, L100.0100, L501.9520, L500.4050 #### [facility] [address] [place], [address] Cholesterol in LDL [Mass/Vol] 105 mg/dL Normal 0-130 [facility] Comment on above: Performed By: #### L 500.4100, L503.0105, L506.1000, L501.9985, L100.0100, L501.9520, L500.4050 #### [facility] [address] [place], [address] Cholesterol in VLDL [Mass/Vol] 21 mg/dL Normal 5-40 [facility] Comment on above: Performed By: #### L 500.4100, L503.0105, L506.1000, L501.9985, L100.0100, L501.9520, L500.4050 #### [facility] [address] [place], [address] Triglyceride [Mass/Vol] 106 mg/dL Normal [facility] Comment on above: Result Comment: The drugs N-Acetylcysteine and Metamizole may falsely depress this assay. Serum Triglycerides Reference Interval Normal <150 mg/dL Borderline high 150 - 199 mg/dL High 200 - 499 mg/dL Very High > or = 500 mg/dL Performed By: #### L 500.4100, L503.0105, L506.1000, L501.9985, L100.0100, L501.9520, L500.4050 #### [facility] [address] [place], [address] Thyroid Stim Hormone (TSH)on 06-18-2024 TSH 3.090 uIU/mL Normal 0.358-3.740 [facility] Comment on above: Performed By: #### L 500.4100, L503.0105, L506.1000, L501.9985, L100.0100, L501.9520, L500.4050 ####[facility] [address] [place], [address] Vitamin B12on 06-18-2024 Cobalamin (Vitamin B12) [Mass/Vol] 243 pg/mL Normal 211-911 [facility] Comment on above: Performed By: #### L 500.4100, L503.0105, L506.1000, L501.9985, L100.0100, L501.9520, L500.4050 #### [facility] [address] [facility], [address] Vitamin D,25 Hydroxyon 06-18 Vitamin D 25-OH 28.9 ng/mL Normal [facility] Comment on above: Result Comment: Nay min D 25(OH) Status Range Deficiency <20 ng/mL (50nmol/L) Insufficiency 20 - 30 ng/mL (50 - 75 nmol/L) Sufficiency 30 - 100 ng/mL (75 - 250 nmol/L) Toxicity >100 ng/mL (>250 nmol/L) Performed By: #### L 500.4100, L503.0105, L506.1000, L501.9985, L100.0100, L501.9520, L500.4050 #### [facility] [address] [place], [address] SCRN MAMM (CAD)W/ASHWINI BILATo n 01-03-2024 SCRN MAMM (CAD)W/ASHWINI BILAT [facility] Services [address] [place] [address] SCRN MAMM (CAD)W/ASHWINI BILAT MR#: [id number] Acct: [id number] Name: CORTEZ RIDLEY Rep #: [id number] : 1980 F 43 From: Juan monterroso MD PCP: Dr. Ronak Gant MD Status: REG [facility] Study: SCRN MAMM (CAD)W/ASHWINI BILAT Date of Exam: 12/06 Exam# [id number] Ordering Dr: Ronak Gant MD [id number] MAMMOGRAPHY - BILATERAL SCREENING REASON FOR EXAM: Female, 43 years old. Routine annual screening examination. PERTINENT HISTORY: Non-contributory. TECHNIQUE: Digital bilateral breast ashwini (3D mammographic acquisition) in the CC and MLO projections. 2-D mediolateral oblique (MLO) and craniocaudad (CC) views of both breasts were obtained. CAD: Full Field Digital Mammography with Computer Added Detection was performed. COMPARISON: Comparison is made with prior study dated December 22, 2022. FINDINGS: Breast Composition: The breasts are extremely dense, which lowers the sensitivity of mammography. There are no dominant masses or suspicious calcifications. No other significant abnormalities are identified. There has been no significant change since the prior study. BI/SCRN MAMM (CAD)W/ASHWINI BILAT IMPRESSION: Stable bilateral screening mammogram. Yearly follow-up mammogram recommended. (A) ASSESSMENT CATEGORY: BIRADS Category 1: Negative. A letter regarding these results will be sent to the patient by the facility within 30 days. Approximately 10% of breast cancers are not detected by mammography. A normal mammogram should not delay biopsy of a clinically suspicious abnormality. [id number] Electronically Signed: Juan Menjivar MD at 13:17 EDT , CC: Dr. 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 Ronak Gant MD) Generalized anxiety disorder Health care maintenance Intermittent chest pain Neck pain Obesity (BMI 30.0-34.9) Palpitations Preventative health care Surgical History History of dilation and curettage Family History Grandmother Colon cancer Mother Diabetes Grandfather Myocardial infarction, Onset Age: 73 CVA (cerebral vascular accident) Social History adopted: No household members: family housing: house number of children: 3 current occupational status: employed current occupation: [employer] current occupational exposures/hazards: No pets and animals: Yes history of recent travel: No sexually active: Yes Smoking Status: Never smoker second hand exposure: No alcohol intake: current alcohol intake frequency: 3 or more drinks per day Alcohol type: other substance use type: does not use well-balanced diet: daily or most days caffeine: Yes Type: coffee Number of servings: 4 eating out: 1-3 times/week what type of physical activity do you participate in: weight training and other details: CARDIO frequency: 3-4 times per week seatbelt use: always do you feel safe at home: Yes additional social history: - Bhargavi HPI HPI Chief Complaint: Yearly/preventive Details: CORTEZ RIDLEY, is a 43 F who presents to the office today for yearly/preventative. No acute concerns or changes since last visit. Went off Lexapro and has been doing well without it. Follows up with [facility] [employer], last mammogram in December. No immediate family history of colon cancer however, positive family history of colon cancer in her paternal grandmother. No dark or bloody stool or unintentional weight changes. Weight concerns discussed. ROS Const Constitutional: No body ache, chills, excessive sweating, fatigue, fever(s), frequent falls, headache(s), snoring, weakness or change in appetite Eyes Eyes: No blurry vision, change in vision, bulging eyes, floaters, eye pain or Light sensitivity ENT ENT: No abnormal hearing, ear or mastoid pain, tinnitus, balance problems, nosebleed/epistaxis, nasal congestion, headache(s), neck pain or sore throat Resp Respiratory: No cough, excessive phlegm production, pain on inspiration, shortness of breath, snoring or wheezing Cardio Cardiology: No chest pain at rest, chest pain with exertion, excessive sweating, dyspnea on exertion, lightheadedness, orthopnea or palpitations Gastro GI: No abdominal pain, change in bowel habits, constipation, cramping, diarrhea, nausea/dyspepsia or vomiting Genitourinary-Female: No burning urination, painful urination, urinary incontinence, urinary frequency, suprapubic fullness or side pain Musc Musculoskeletal: No abnormal gait, joint pain, back pain, limited range of motion, muscle cramps, muscle weakness, neck pain or numbness Skin Skin: No dry skin, redness, lesions, itchy eyes, rash or wounds Neuro Neurology: No abnormal gait, abnormal hearing, behavioral changes, confusion, weakness, frequent falls, headache(s), memory loss or numbness Psych Psychiatric: No anxiety, No behavioral changes, No change in appetite, No confusion, No depression, No memory loss and No Thoughts of harming yourself/Others Endo Endocrine: No cold intolerance, excessive sweating, fatigue, flushing, heat intolerance, increased thirst/drinking or increased hunger Aller/Imm Allergy/Immunologic: No itchy eyes, seasonal allergy symptoms, hives or wheezing Keanu/Lymp Hematologic/Lymphatic : No easy bleeding or easy bruising Exam Const General: cooperative, comfortable and no acute distress Orientation: alert, awake and oriented x3 HENMT Head: normal to inspection, normoceph (more content not included)... Normal [facility] PAP IG HPV APTIMA 16/18,45on 10-07-2023 ADEQ Comment Normal . [facility] Comment on above: Order Comment: Speci men Comment: [id number] Specimen Comment: Source.............Cervix;Endocervix Specimen Comment: No. of containers..01 ThinPrep Vial Result Comment: Sati sfactory for evaluation. Endocervical and/or squamous metaplastic cells (endocervical component) are present. Performed By: #### L 7400.0280 #### [facility] [address]. [place], [place], [id number] COMM . Normal . [facility] Comment on above: Order Comment: Speci men Comment: [id number] Specimen Comment: Source.............Cervix;Endocervix Specimen Comment: No. of containers..01 ThinPrep Vial Performed By: #### L 7400.0280 #### [facility] [address] [place], [place], [id number] COMMENT Comment Normal . [facility] Comment on above: Order Comment: Speci men Comment: [id number] Specimen Comment: Source.............Cervix;Endocervix Specimen Comment: No. of containers..01 ThinPrep Vial Result Comment: This liquid based ThinPrep(R) pap test was screened with the use of an image guided system. Performed By: #### L 7400.0280 #### [facility] [address] [place], [place], [address] DIAG Comment Normal . [facility] Comment on above: Order Comment: Speci men Comment: [id number] Specimen Comment: Source.............Cervix;Endocervix Specimen Comment: No. of containers..01 ThinPrep Vial Result Comment: NEGA TIVE FOR INTRAEPITHELIAL LESION OR MALIGNANCY. Performed By: #### L 7400.0280 #### [facility] [address] [place], [place], [id number] HPV APTIMA, HR Negative Normal Negative [facility] Comment on above: Order Comment: Speci men Comment: [id number] Specimen Comment: Source.............Cervix;Endocervix Specimen Comment: No. of containers..01 ThinPrep Vial Result Comment: This nucleic acid amplification test detects fourteen high- risk HPV types (16,18,31,33,35,39,45,51,52,56,58,59,66,68) without differentiation. Performed By: #### L 7400.0280 #### [facility] [address] [place], [place], [id number] HPV Hallie Rfx Comment Normal . [facility] Comment on above: Order Comment: Speci men Comment: [id number] Specimen Comment: Source.............Cervix;Endocervix Specimen Comment: No. of containers..01 ThinPrep Vial Result Comment: Crit eria not met, HPV Genotype not performed. Performed at: [address] [id number] Banquet Director: Mia Staton MD, Phone: [phone] Performed at: =[address] [id number] Banquet Director: Mia Staton MD, Phone: [phone] Performed By: #### L 7400.0280 #### [facility] [address] [place], [address] PAPSMR Comment Normal . [facility] Comment on above: Order Comment: Speci men Comment: [id number] Specimen Comment: Source.............Cervix;Endocervix Specimen Comment: No. of containers..01 ThinPrep Vial Result Comment: The Pap smear is a screening test designed to aid in the detection of premalignant and malignant conditions of the uterine cervix. It is not a diagnostic procedure and should not be used as the sole means of detecting cervical cancer. Both false-positive and false-negative reports do occur. Performed By: #### L 7400.0280 #### [facility] [address] [place], [address] PERFORM Comment Normal . [facility] Comment on above: Order Comment: Speci men Comment: [id number] Specimen Comment: Source.............Cervix;Endocervix Specimen Comment: No. of containers..01 ThinPrep Vial Result Comment: Tami Bowie Nurse Sane (ASCP) Performed By: #### L 7400.0280 #### [facility] [address] [place], [address] Visual Journalist Office Visit Reporton 10-01-2023 Visual Journalist Office Visit Report [facility] [address] [place] [address] OFFICE VISIT Date of Service: 10/01/23 MR#: [id number] Acct: [id number] Name: CORTEZ RIDLEY Rep #: [id number] : 1980 Provider: SARABJIT Dumont ams Age/Sex: 43/F Location: [facility] Status: Signed Intake Vital Signs 07/06/23 09:57 08/01/23 12:35 10/01/23 09:20 10/01/23 09:25 Height 5 ft 3 in 5 ft 3 in 5 ft 3 in 5 ft 3 in Weight: 176 lb 181 lb BMI 31.1 32.1 BP 122/78 H 113/78 Blood Pressure Location Lt brachial Position Sitting Respiration 16 Pulse 77 Pulse Source Monitor Temp 97.8 F Pulse Oximetry (%) 97 Oxygen Delivery Method room air Intake Visit Reasons: Annual ([employer]) Is patient in pain?: No Allergies No Known Allergies Allergy (Verified 10/01/23 09:21) Medications escitalopram oxalate 10 mg tablet 10 mg PO DAILY #90 tabs 04/13/23 [Rx Confirmed 10/01/23] Is last menstrual period known: Yes Last Menstrual Period: 09/13/23 Post menopausal: No Patient : No : [facility] History Generalized anxiety disorder Health care maintenance Intermittent chest pain Neck pain Obesity (BMI 30.0-34.9) Palpitations Surgical History History of dilation and curettage Family History Grandmother Colon cancer Mother Diabetes Grandfather Myocardial infarction, Onset Age: 73 CVA (cerebral vascular accident) Social History (Updated 10/01/23 @ 09:24 by Kellie Kay) adopted: No household members: family housing: house number of children: 3 current occupational status: employed current occupation: [employer] current occupational exposures/hazards: No pets and animals: Yes history of recent travel: No sexually active: Yes Smoking Status: Never smoker second hand exposure: No alcohol intake: current alcohol intake frequency: 3 or more drinks per day Alcohol type: other substance use type: does not use well-balanced diet: daily or most days caffeine: Yes Type: coffee Number of servings: 4 eating out: 1-3 times/week what type of physical activity do you participate in: weight training and other details: CARDIO frequency: 3-4 times per week seatbelt use: always do you feel safe at home: Yes additional social history: - Bhargavi History Elective abortions Hx Para 2 Spontaneous abortions Hx # Term Pregnancies Ectopic pregnancies Hx # Pregnancies Multiple births # of living children HPI Encounter for routine gynecological examination Details: CORTEZ RIDLEY is a 43 year old who presents for annual exam. Concerned for intermittent right sided abdominal pain associated with ovulation. Last PAP: 2018 History of abnormal PAP: No Last mammogram: 2022 PCP History of abnormal mammogram: No Colon cancer screening: Age 46 Other preventative health care screenings: PCP Female Reproductive History Last Menstrual Period: 09/13/23 Cycle Length: 21-35 Bleeding Duration: 4 Control Method: NFP Questions: metorrhagia: No, sexually active: Yes, dyspareunia: No and PCB: No Menopausal Symptoms: Yes hot flashes, Yes night sweats, Yes weight change and Yes mood changes ROS Const Constitutional: Reports system reviewed and no additional complaints, except as documented and night sweats Cardio Card: Reports system reviewed and no additional complaints, except as documented Resp Resp: Reports system reviewed and no additional complaints, except as documented GI GI: Reports system reviewed and no additional complaints, except as documented : Reports system reviewed and no additional complaints, except as documented and hot flashes; Denies difficulty voiding, dysuria or urinary frequency Skin Skin/Breast: Reports system reviewed and no additional complaints, except as documented Neuro Neuro: Reports system reviewed and no additional complaints, except as documented Psych Psych: Reports system reviewed and no additional complaints, except as documented; Denies anhedonia, anxiety or depression Exam Const General: cooperative, healthy appearing, comfortable and no acute distress Orientation: alert, awake and oriented x3 Neck Neck: normal visual inspection and full ROM Thyroid: thyroid normal Chest Breast inspection: normal inspection of the breasts and normal inspection of the axillae Breast palpation: normal palpation of the breasts and normal palpation of the axillae Resp Effort Inspection: normal respiratory effort, able to speak in complete sentences and symmetric chest movement GI Inspection: normal to inspection Palpation: soft Rect (more content not included)... Normal [facility] Absolute lymphocyte countOrd ered By: Carlos Alberto Figueroa on 03-03-2023 Lymphocytes Auto (Unsp spec) [#/Vol] 2.14 10*3/uL 0.83-4.51 [facility] Basophil percentageOrdered B y: Carlos Alberto Figueroa on 03-03-2023 Basophils/100 WBC (Bld) 0.2 % 0-1 [facility] Chloride [Moles/Vol] 106 mmol/L 98-107 [facility] Eosinophils/100 WBC (Bld) 1.3 % 0-5 [facility] Glucose [Mass/Vol] 111 mg/dL 74-106 [facility] Comment on above: Fasting Glucose resu lt from 100 to 125 mg/dL suggests IMPAIRED HOMEOSTASIS per A.D.A. criteria. Neutrophils (Bld) [#/Vol] 3.7 10*3/uL 2.0-7.7 [facility] Neutrophils/100 WBC (Bld) 57.6 % 47-70 [facility] Potassium [Moles/Vol] 3.7 mmol/L 3.5-5.1 [facility] Sodium [Moles/Vol] 138 mmol/L 136-145 [facility] WBC (Bld) [#/Vol] 6.4 10*3/uL 4.4-11.0 [facility] Blood erythrocytes count (nu mber/volume)Ordered By: Carlos Alberto Figueroa on 03-03-2023 RBC (Bld) [#/Vol] 4.13 10*6/uL 4.2-5.4 [facility] Blood hemoglobin measurement (mass/volume)Ordered By: Carlos Alberto Figueroa on 03-03-2023 Hemoglobin (Bld) [Mass/Vol] 13.1 g/dL 12.0-15.0 [facility] Blood lymphocytes/100 leukoc ytesOrdered By: Carlos Alberto Figueroa on 03-03-2023 Lymphocytes/100 WBC (Bld) 33.4 % 19-41 [facility] Blood monocytes/100 leukocyt esOrdered By: Carlos Alberto Figueroa on 03-03-2023 Monocytes/100 WBC (Bld) 7.2 % 0-10 [facility] Blood platelet mean volumeOr dered By: Carlos Alberto Figueroa on 03-03-2023 Platelet mean volume (Bld) [Entitic vol] 9.6 fL 6.2-12.0 [facility] Determination of erythrocyte mean corpuscular volume (MCV)Ordered By: Carlos Alberto Figueroa on 03-03-2023 MCV (RBC) [Entitic vol] 92.5 fL 81-99 [facility] Hematocrit Auto (Bld) [Volum e fraction]Ordered By: Carlos Alberto Figueroa on 03-03-2023 Hematocrit (Bld) [Volume fraction] 38.2 % 37-47 [facility] - Chemistry and C hemistry - challengeOrdered By: Carlos Alberto Figueroa on 03-03-2023 CO2 [Moles/Vol] 25.0 mmol/L 21.0-32.0 [facility] Urea nitrogen/Creatinine [Mass ratio] 15.3 mg/mg 10-20 [facility] - Hematology and Cell countsOrdered By: Carlos Alberto Figueroa on 03-03-2023 Erythrocyte distribution width (RBC) [Entitic vol] 42.9 fL 35.1-43.9 [facility] Erythrocyte distribution width (RBC) [Ratio] 12.6 % 11.6-14.6 [facility] Immature granulocytes/100 WBC (Bld) 0.300 % 0.0-0.9 [facility] Comment on above: IG% - Immature Granu locytes (promyelocytes, myelocytes and metamyelocytes) > 1% indicates that a LEFT SHIFT is Present. MCH (RBC) [Entitic mass] 31.7 pg 27.0-32.0 [facility] Nucleated RBC/100 WBC (Bld) [Ratio] 0 % 0-5 [facility] MCHC Auto (RBC) [Mass/Vol]Or dered By: Carlos Alberto Figueroa on 03-03-2023 MCHC (RBC) [Mass/Vol] 34.3 g/dL 32-36 [facility] No Panel InformationOrdered By: Carlos Alberto Figueroa on 03-03-2023 Estimated Creatinine Clearance Calc 78.52 ml/min [facility] Estimated GFR (MDRD) Amer 104 mL/min >60 [facility] Comment on above: GFR Calc Estimated GFR (MDRD) Non-Af Amer 86 mL/min >60 [facility] Comment on above: Non- GFR Calc Troponin I High Sensitivity < 3 pg/mL 3.0-54.0 [facility] Comment on above: Please Note: New Margo t Units and Gender Specific Reference Ranges. For more information see Policy Stat Procedure [place] High Sensitivity Troponin (TNIH) and attachments. Platelets bldOrdered By: Gabriella Figueroa on 03-03-2023 Platelets (Bld) [#/Vol] 280 10*3/uL 150-450 [facility] Serum or plasma calcium julia urement (mass/volume)Ordered By: Carlos Alberto Figueroa on 03-03-2023 Calcium [Mass/Vol] 8.6 mg/dL 8.5-10.1 [facility] Serum or plasma creatinine m easurement (mass/volume)Ordered By: Carlos Alberto Figueroa on 03-03-2023 Creatinine [Mass/Vol] 0.78 mg/dL 0.55-1.02 [facility] Comment on above: The validity of the calculated GFR & GFRAA in patients over 70 years has not been determined. Clinical correlation is essential. Serum or plasma urea nitroge n measurement (mass/volume)Ordered By: Carlos Alberto Figueroa on 03-03-2023 Urea nitrogen [Mass/Vol] 12 mg/dL 7-18 [facility] Thin prep Papanicolaou smear with manual screeningOrdered By: Carlos Alberto Figueroa on 03-03-2023 Thin prep Papanicolaou smear with manual screening 7 5-15 [facility] Absolute lymphocyte countOrd ered By: Dr. Gant on 12-08-2022 Lymphocytes Auto (Unsp spec) [#/Vol] 1.52 10*3/uL 0.83-4.51 [facility] Basophil percentageOrdered B y: Dr. Gant on 12-08-2022 Basophils/100 WBC (Bld) 0.4 % 0-[address] [facility] Bilirubin [Mass/Vol] 0.40 mg/dL 0.20-1.00 [facility] Comment on above: For patients on eltr ombopag therapy, use of Dimension [place] TBIL is not recommended. Chloride [Moles/Vol] 108 mmol/L 98-107 [facility] Cholesterol [Mass/Vol] 168 mg/dL <200 [facility] Comment on above: <200 mg/dL Desirable 200-240 mg/dL Borderline >240 mg/dL High Risk Eosinophils/100 WBC (Bld) 1.7 % 0-5 [facility] Glucose [Mass/Vol] 108 mg/dL 74-106 [facility] Comment on above: Fasting Glucose resu lt from 100 to 125 mg/dL suggests IMPAIRED HOMEOSTASIS per A.D.A. criteria. Neutrophils (Bld) [#/Vol] 2.8 10*3/uL 2.0-7.7 [facility] Neutrophils/100 WBC (Bld) 59.0 % 47-70 [facility] Potassium [Moles/Vol] 4.1 mmol/L 3.5-5.1 [facility] Protein [Mass/Vol] 7.3 g/dL 6.4-8.2 [facility] Sodium [Moles/Vol] 140 mmol/L 136-145 [facility] Triglyceride [Mass/Vol] 41 mg/dL <199 [facility] Comment on above: The drugs N-Acetylcy steine and Metamizole may falsely depress this assay.Serum Triglycerides Reference Interval Normal <150 mg/dL Borderline high 150 - 199 mg/dL High 200 - 499 mg/dL Very High > or = 500 mg/dL WBC (Bld) [#/Vol] 4.8 10*3/uL 4.4-11.0 [facility] Blood erythrocytes count (nu mber/volume)Ordered By: Dr. Gant on 12-08-2022 RBC (Bld) [#/Vol] 4.43 10*6/uL 4.2-5.4 [facility] Blood hemoglobin measurement (mass/volume)Ordered By: Dr. Gant on 12-08-2022 Hemoglobin (Bld) [Mass/Vol] 13.4 g/dL 12.0-15.0 [facility] Blood lymphocytes/100 leukoc ytesOrdered By: Dr. Gant on 12-08-2022 Lymphocytes/100 WBC (Bld) 31.6 % 19-41 [facility] Blood monocytes/100 leukocyt esOrdered By: Dr. Gant on 12-08-2022 Monocytes/100 WBC (Bld) 7.1 % 0-[address] [facility] Blood platelet mean volumeOr dered By: Dr. Gant on 12-08-2022 Platelet mean volume (Bld) [Entitic vol] 9.9 fL 6.2-12.0 [facility] Determination of erythrocyte mean corpuscular volume (MCV)Ordered By: Dr. Gant on 12-08-2022 MCV (RBC) [Entitic vol] 92.3 fL 81-99 [facility] Hematocrit Auto (Bld) [Volum e fraction]Ordered By: Dr. Gant on 12-08-2022 Hematocrit (Bld) [Volume fraction] 40.9 % 37-47 [facility] - Chemistry and C hemistry - challengeOrdered By: Dr. Gant on 12-08-2022 ALP [Catalytic activity/Vol] 49 U/L 45-117 [facility] ALT [Catalytic activity/Vol] 28 U/L 13-56 [facility] CO2 [Moles/Vol] 27.0 mmol/L 21.0-32.0 [facility] Free T4 [Mass/Vol] 1.11 ng/dL 0.76-1.46 [facility] Globulin (S) [Mass/Vol] 3.6 g/dL 2.2-4.[address] [facility] Urea nitrogen/Creatinine [Mass ratio] 19.7 mg/mg 10-20 [facility] - Hematology and Cell countsOrdered By: Dr. Gant on 12-08-2022 Erythrocyte distribution width (RBC) [Entitic vol] 41.9 fL 35.1-43.9 [facility] Erythrocyte distribution width (RBC) [Ratio] 12.3 % 11.6-14.6 [facility] Immature granulocytes/100 WBC (Bld) 0.200 % 0.0-0.9 [facility] Comment on above: IG% - Immature Granu locytes (promyelocytes, myelocytes and metamyelocytes) > 1% indicates that a LEFT SHIFT is Present. MCH (RBC) [Entitic mass] 30.2 pg 27.0-32.0 [facility] Nucleated RBC/100 WBC (Bld) [Ratio] 0 % 0-5 [facility] MCHC Auto (RBC) [Mass/Vol]Or dered By: Dr. Gant on 12-08-2022 MCHC (RBC) [Mass/Vol] 32.8 g/dL 32-36 [facility] No Panel InformationOrdered By: Dr. Gant on 12-08-2022 Estimated GFR (MDRD) Amer 117 mL/min >60 [facility] Comment on above: GFR Calc Estimated GFR (MDRD) Non-Af Amer 96 mL/min >60 [facility] Comment on above: Non- GFR Calc Thyroid Stimulating Hormone (TSH) 2.24 uIU/mL 0.358-3.74 [facility] Platelets bldOrdered By: Dr. Gant on 12-08-2022 Platelets (Bld) [#/Vol] 282 10*3/uL 150-450 [facility] Serum or plasma albumin julia urement (mass/volume)Ordered By: Dr. Gant on 12-08-2022 Albumin [Mass/Vol] 3.7 g/dL 3.2-5.0 [facility] Serum or plasma albumin/glob ulin mass ratioOrdered By: Dr. Gant on 12-08-2022 Albumin/Globulin [Mass ratio] 1.0 {ratio} 0.9-2.4 [facility] Serum or plasma calcium julia urement (mass/volume)Ordered By: Dr. Gant on 12-08-2022 Calcium [Mass/Vol] 8.8 mg/dL 8.5-10.1 [facility] Serum or plasma cholesterol in HDL measurement (mass/volume)Ordered By: Dr. Gant on 12-08-2022 Cholesterol in HDL [Mass/Vol] 71 mg/dL >40 [facility] Comment on above: The drugs N-Acetylcy steine and Metamizole may falsely depress this assay. Reference Range HDL <40 mg/dL Low HDL Cholesterol HDL >or= 60 mg/dL High HDL Cholesterol Serum or plasma cholesterol in VLDL measurement (mass/volume)Ordered By: Dr. Gant on 12-08-2022 Cholesterol in VLDL [Mass/Vol] 8 mg/dL 5-40 [facility] Serum or plasma creatinine m easurement (mass/volume)Ordered By: Dr. Gant on 12-08-2022 Creatinine [Mass/Vol] 0.71 mg/dL 0.55-1.02 [facility] Comment on above: The validity of the calculated GFR & GFRAA in patients over 70 years has not been determined. Clinical correlation is essential. Serum or plasma low density lipoprotein (LDL) cholesterol measurement (mass/volume)Ordered By: Dr. Gant on 12-08-2022 Cholesterol in LDL [Mass/Vol] 89 mg/dL 0-130 [facility] Serum or plasma urea nitroge n measurement (mass/volume)Ordered By: Dr. Gant on 12-08-2022 Urea nitrogen [Mass/Vol] 14 mg/dL 7-18 [facility] Thin prep Papanicolaou smear with manual screeningOrdered By: Dr. Gant on 12-08-2022 Thin prep Papanicolaou smear with manual screening 18 U/L 15-37 [facility] Thin prep Papanicolaou smear with manual screening 5 5-15 [facility] EMERGENCY REPORTon 9 EMERGENCY REPORT [facility] EMERGENCY ROOM REPORT NAME ACCOUNT SEX AGE ADMIT DISCHARGE PT MED. RECORD# NUMBER DATE DATE TYPE CORTEZ RIDLEY [id number] F 38 11/13/18 11/13/18 [id number] ROOM: ER DATE OF : 1980 DICTATING PHYSICIAN: Paco Mayen TIME SEEN: 1908 hours. HISTORY OF PRESENT ILLNESS: This is a 38-year-old white female complaining of a lower lip laceration after she was struck in the face by a baseball. Apparently it was a foul ball. She was sitting up in the stands, and the baseball struck her over the lower lip, lacerating it. She denies any dental pain. She denies any jaw pain. She did not pass out. She denies any headache, nausea, vomiting, or blurred or double vision. Presently, she rates the pain to her lip as a 4 on a severity scale of 1-10. She describes it as sharp in nature. It is mildly worse with movement. PAST MEDICAL HISTORY: Denied. PAST SURGICAL HISTORY: Denied. ALLERGIES: No known drug allergies. SOCIAL HISTORY: The patient is not a smoker. She denies any illicit drug use. She does admit to occasional alcohol use. She lives at home with family. REVIEW OF SYSTEMS: She denies any jaw pain, epistaxis, dental pain, or sore throat. She denies any chest pain, shortness of breath, cough, sputum, wheezing, abdominal pain, nausea, vomiting, diarrhea, constipation, melena, hematochezia, headache, numbness, unsteady gait, weakness, neck or back pain, joint pain, or skin rash. She does complain of a laceration to the lower lip with some associated swelling. She denies any blurred or double vision. Further review of systems is negative. PHYSICAL EXAMINATION: Vital signs: Blood pressure is 120/99, pulse 80, respirations 18, temperature 97.9, pulse oximetry 98%, and weight 165 pounds. The patient is alert and oriented x3. She presently appears in no acute distress. She is pleasant and cooperative. HEENT: Pupils are equal and reactive to light. Red reflexes are intact bilaterally. Extraocular muscles are intact. No conjunctival injection. Nose exhibits no rhinorrhea or epistaxis. Mouth: I do note a 1.5 cm linear laceration involving the vermilion surface of the lower lip right on the midline. The laceration is gaping, but it is superficial. It does not cross the vermilion border. It just involves the vermilion surface. All of her lower teeth are intact. None of them are chipped, and they are not tender. I did push on all of those lower teeth as well as the upper teeth, and none of them are loose. None of them are tender. She has no mandibular tenderness as well. Page 1 of 2 [facility] Emergency Room Report She is able to open and close her jaw without any pain. Neck is supple. Trachea is midline. No JVD or lymphadenopathy. No posterior cervical tenderness. No nuchal rigidity. Lungs are clear to auscultation in all lung ruano. No adventitious sounds are noted. No accessory muscle use is noted. CV: Heart rate and rhythm are regular without murmur. Abdomen is soft and nontender with normoactive bowel sounds x4 quadrants. No guarding or rigidity. Extremities: No edema or cyanosis. Peripheral pulses are intact. No motor or sensory deficits are noted. Hand car rental clerk are strong and symmetric. Skin is warm and dry. No diaphoresis or rash. Neurologic examination shows the patient to be alert and oriented x4. No motor or sensory deficits are noted. Normal speech. EMERGENCY DEPARTMENT COURSE AND TREATMENT: The wound site was cleansed with Betasept solution. Local anesthesia with 1% lidocaine with epinephrine. Good local anesthesia was achieved, and the wound was explored. No bone involvement. No foreign body. The wound was copiously irrigated with sterile normal saline and then closed with a total of four simple interrupted sutures of 4-0 Vicryl. Good approximation of the wound site was achieved, and the patient tolerated the procedure well. The patient was advised to keep the wound site clean and dry. She has four absorbable sutures of the 4-0 Vicryl, so they will come out on their own. I did give the patient a prescription for amoxicillin 500 mg one p.o. t.i.d., dispense #21 with no refill. I advised her if that wound site starts to look like it is becoming infected such as erythema or increasing pain to start the antibiotics. She does have an appointment tomorrow with her farm assistant. I asked her to have him recheck that wound, which obviously he will. Otherwise, keep the wound site clean and dry and let the sutures dissolve on their own. She does not have a family doctor, so I am going to refer her to [facility] for follow-up for a wound recheck in 3 to 5 days. If her symptoms become worse, return here to the Emergency Department. The patient was discharged in a clinically stable condition. Nurse's notes reviewed. We did give the patient a tetanus, Tdap 0.5 mL IM, because she states her last tetanus was greater than 5 years ago. DIAGNOSIS: Linear laceration, 1.5 cm, of the vermilion surface of the lower lip -- repaired. Dictated By: Paco Mayen DO 11/13/18 20:46 JOB #: [id number] Transcribed By: cheryl 11/14/18 06:42 Electronically signed by: E-Sign: Dr. Paco Mayen D.O. 11/20/18 19:28 Page 2 of 2 [facility] Emergency Room Report Normal [facility] Vital Signs Date Time Vital Sign Value Performing Clinician Nasir streeter 01-16-2025 11:210400 Body height 160.[address] Ronak Gant MD Work Phone: [facility] 01-16-2025 11:21-0400 Body mass index (BMI) [Ratio] 28.5 kg/m2 Dr. Ronak Gant MD Work Phone: [facility] 01-16-2025 11:21040 Body temperature 98.9 [degF] Dr. Ronak Gant MD Work Phone: [facility] 01-16-2025 11:21-0400 Body weight 73.[address] Ronak Gant MD Work Phone: [facility] 01-16-2025 11:21-0400 Diastolic blood pressure 78 mm[Hg] Dr. Ronak Gant MD Work Phone: [facility] 01-16-2025 11:21-0400 Heart rate 72 /min Dr. Ronak Gant MD Work Phone: [facility] 01-16-2025 11:21-0400 Respiratory rate 16 /min Dr. Ronak Gant MD Work Phone: [facility] 01-16-2025 11:21-0400 SaO2% (BldA) [Mass fraction] 98 % Dr. Ronak Gant MD Work Phone: [facility] 01-16-2025 11:21-0400 Systolic blood pressure 104 mm[Hg] Dr. Ronak Gant MD Work Phone: [facility] 10-01-2023 09:25-0500 Body height 160.[address] Ronak Gant Work Phone: [facility] 10-01-2023 09:20-0500 Body mass index (BMI) [Ratio] 32.1 kg/m2 Dr. Ronak Gant Work Phone: [facility] 10-01-2023 09:20-0500 Body weight 82.[address] Ronak Gant Work Phone: [facility] 10-01-2023 09:20-0500 Diastolic blood pressure 78 mm[Hg] Dr. Ronak Gant Work Phone: [facility] 10-01-2023 09:20-0500 Systolic blood pressure 113 mm[Hg] Dr. Ronak Gant Work Phone: [facility] 07-06-2023 09:57-0500 Body mass index (BMI) [Ratio] 31.1 kg/m2 Dr. Ronak Gant Work Phone: [facility] 07-06-2023 09:57-0500 Body temperature 97.8 [degF] Dr. Ronak Gant Work Phone: [facility] 07-06-2023 09:57-0500 Body weight 79.[address] Ronak Gant Work Phone: [facility] 07-06-2023 09:57-0500 Diastolic blood pressure 78 mm[Hg] Dr. Ronak Gant Work Phone: [facility] 07-06-2023 09:57-0500 Heart rate 77 /min Dr. Ronak Gant Work Phone: [facility] 07-06-2023 09:57-0500 Respiratory rate 16 /min Dr. Ronak Gant Work Phone: [facility] 07-06-2023 09:57-0500 SaO2% (BldA) [Mass fraction] 97 % Dr. Ronak Gant Work Phone: [facility] 07-06-2023 09:57-0500 Systolic blood pressure 122 mm[Hg] Dr. Ronak Gant Work Phone: [facility] 03-03-2023 19:31-0400 Diastolic blood pressure 80 mm[Hg] Dr. Ronak Gant Work Phone: [facility] 03-03-2023 19:31-0400 Heart rate 84 /min Dr. Ronak Gant Work Phone: [facility] 03-03-2023 19:31-0400 Respiratory rate 18 /min Dr. Ronak Gant Work Phone: [facility] 03-03-2023 19:31-0400 SaO2% (BldA) [Mass fraction] 98 % Dr. Ronak Gant Work Phone: [facility] 03-03-2023 19:31-0400 Systolic blood pressure 122 mm[Hg] Dr. Ronak Gant Work Phone: [facility] 03-03-2023 17:59-0400 Body height 160.[address] Ronak Gant Work Phone: [facility] 03-03-2023 17:59-0400 Body mass index (BMI) [Ratio] 31.1 kg/m2 Dr. Ronak Gant Work Phone: [facility] 03-03-2023 17:59-0400 Body temperature 98 [degF] Dr. Ronak Gant Work Phone: [facility] 03-03-2023 17:59-0400 Body weight 79.[address] Ronak Gant Work Phone: [facility] 01-19-2023 10:28-0400 Body mass index (BMI) [Ratio] 30.2 kg/m2 Dr. Ronak Gant Work Phone: [facility] 01-19-2023 10:28-0400 Body temperature 97.6 [degF] Dr. Ronak Gant Work Phone: [facility] 01-19-2023 10:28-0400 Body weight 77.[address] Ronak Gant Work Phone: [facility] 01-19-2023 10:28-0400 Diastolic blood pressure 74 mm[Hg] Dr. Ronak Gant Work Phone: [facility] 01-19-2023 10:28-0400 Heart rate 86 /min Dr. Ronak Gant Work Phone: [facility] 01-19-2023 10:28-0400 Respiratory rate 18 /min Dr. Ronak Gant Work Phone: [facility] 01-19-2023 10:28-0400 SaO2% (BldA) [Mass fraction] 97 % Dr. Ronak aGnt Work Phone: [facility] 01-19-2023 10:28-0400 Systolic blood pressure 108 mm[Hg] Dr. Ronak Gant Work Phone: [facility] 12-08-2022 10:33-0400 Body height 160.[address] Ronak Gant Work Phone: [facility] 12-08-2022 10:33-0400 Body mass index (BMI) [Ratio] 30.2 kg/m2 Dr. Ronak Gant Work Phone: [facility] 12-08-2022 10:33-0400 Body temperature 99.1 [degF] Dr. Ronak Gant Work Phone: [facility] 12-08-2022 10:33-0400 Body weight 77.[address] Ronak Gant Work Phone: [facility] 12-08-2022 10:33-0400 Diastolic blood pressure 88 mm[Hg] Dr. Ronak Gant Work Phone: [facility] 12-08-2022 10:33-0400 Heart rate 70 /min Dr. Ronak Gant Work Phone: [facility] 12-08-2022 10:33-0400 Respiratory rate 16 /min Dr. Rnoak Gant Work Phone: [facility] 12-08-2022 10:33-0400 SaO2% (BldA) [Mass fraction] 98 % Dr. Ronak Gant Work Phone: [facility] 12-08-2022 10:33-0400 Systolic blood pressure 112 mm[Hg] Dr. Ronak Gant Work Phone: [facility] Encounters Encounter Date Encounter Type Care Provider Facility Start: 01-16-2025 End: 01-16-[address] Ronak Gant MD Work Phone: [facility] Work Phone: Start: 01-16-2025 End: 01-16-[address] Ronak Gant MD -[facility] Work Phone: Start: 06-18-2024 End: 06-18-2024 ambulatory [facility] Facility:[facility] Start: 01-21-[facility] Start: 01-03-2024 End: 01-03-[facility]24 [facility] Start: 12-10-2023 Encounter for genera l adult medical examination [facility] Start: 12-10-[address] Nuha Gant MD Work Phone: [facility] Start: 12-10-2023 End: 12-10-[facility] Start: 12-10-2023 Encounter for gynecological examination (general) (routine) without abnormal findings Bhargavi Alcocer [facility] Start: 10-02-2023 End: 10-02-[address] Ronak Gant Work Phone: [facility] Work Phone: Start: 10-02-2023 End: 10-02-[address] Ronak Gant Work Phone: [facility]-Laboratory, Specimen Work Phone: Start: 10-01-2023 End: 10-02-2023 [facility] Start: 10-01-2023 End: 10-01-[address] Ronak Gant Work Phone: [facility] Start: 07-06-2023 End: 07-06-[address] Ronak Gant Work Phone: [facility] Work Phone: Start: 03-03-2023 End: 03-03-2023 Emergency department patient visit Dr. Ronak Gant Work Phone: [facility]-Emergency Department Work Phone: Start: 01-19-2023 End: 01-19-[address] Ronak Gant Work Phone: [facility] Internal [facility] Work Phone: Start: 12-22-2022 End: 12-22-[address] Ronak Gant Work Phone: [facility] Work Phone: Start: 12-22-2022 End: 12-22-[address] Ronak Gant Work Phone: [facility]-Outpatient Breast Imaging Start: 12-08-[address] Nuha Gant Work Phone: [facility] Start: 12-08-2022 End: 12-08-[address] Ronak Gant Work Phone: [facility] Work Phone: Start: 12-08-2022 End: 12-08-[address] Ronak Gant Work Phone: [facility]-Laboratory, [facility] Start: 12-08-2022 End: 12-08-2022 Encounter for general adult medical examination without abnormal findings Dr. Ronak Gant Work Phone: [facility] Start: 12-08-2022 End: 12-08-[address] Ronak Gant Work Phone: [facility] Start: 11-13-2018 End: 11-13-2018 Emergency department patient visit PACO DEEUR [facility] Procedures Date Procedure Procedure Detail Performing Clinician Start: 03-03-2023 Plain chest X-ray Dr. Nuha Gant Work Phone: Start: 12-22-2022 Screening mammography Marija Gant Work Phone: Plan of Treatment Date Care Activity Detail Author Start: 01-16-2025 Patient referral [facility] Work Phone: Start: 01-16-2025 CBC W Auto Differential panel - Blood [facility] Start: 01-16-2025 Cobalamin (Vitamin B12) [Mass/volume] in Serum or Plasma [facility] Start: 01-16-2025 Comprehensive metabolic 2000 panel - Serum or Plasma [facility] Start: 01-16-2025 Lipid 1996 panel - Serum or Plasma [facility] Start: 01-16-2025 Vitamin D, 25-hydroxy measurement [facility] Start: 10-02-2023 Liquid based cervical cytology screening [facility] Start: 03-03-2023 [facility] Alanine aminotransfe rase [Enzymatic activity/volume] in Serum or Plasma [facility] Albumin [Mass/volume ] in Serum or Plasma [facility] Alkaline phosphatase [Enzymatic activity/volume] in Serum or Plasma [facility] Anion gap in Serum or Plasma [facility] Bilirubin, total measurement [facility] BUN/Creatinine ratio [facility] Calcium [Mass/volume ] in Serum or Plasma [facility] Carbon dioxide, tota l [Moles/volume] in Central venous blood [facility] Cholesterol [Mass/vo lume] in Serum or Plasma [facility] Cholesterol in HDL [Mass/volume] in Serum or Plasma [facility] Creatinine [Mass/vol ume] in Serum or Plasma [facility] Electrocardiographic procedure [facility] Erythrocyte mean cor puscular volume determination [facility] Glucose [Mass/volume ] in Serum or Plasma [facility] Hematocrit [Volume F raction] of Blood [facility] Hemoglobin [Mass/vol ume] in Blood [facility] Leukocytes [#/volume] in Blood [facility] Low density lipoprot ein cholesterol measurement [facility] Mean corpuscular hem oglobin concentration determination [facility] Mean corpuscular hem oglobin determination [facility] Measurement of renal function [facility] MG Breast - bilatera l Screening [facility] MG Breast - bilatera l Screening [facility] Neutrophil count [facility] Neutrophil percent differential count [facility] Path report.final Dx Spec [facility] Patient Education ED Chest Pain, Uncertain Cause [facility] Work Phone: Patient referral [facility] Work Phone: Platelets [#/volume] in Blood [facility] Potassium measurement [facility] Red blood cell count [facility] Red cell distributio n width determination [facility] Serum chloride measurement [facility] Sodium measurement [facility] Total cholesterol:HD L ratio measurement [facility] Total protein measurement [facility] Triglycerides measurement [facility] Urea nitrogen [Mass/ volume] in Serum or Plasma [facility] VLDL cholesterol measurement [facility] Payers Date Payer Category Payer Self-pay [id number] 2023 Unknown [id number] 1980 Unknown [id number] [id number] Unknown [id number] Unknown ANTHEM [id number] Unknown [facility] [id number] Unknown [facility] *DO NOT USE* [id number] Unknown [id number] 2.16.8 [id number] Unknown [id number] 2.16.8 [id number] Unknown [id number] 2.16.8 [id number] Unknown [id number] 2.16.8 [id number] Unknown [id number] 2.16.8 [id number] Unknown [id number] 2.16.8 [id number] Social History Date Type Detail Facility Start: 12-08-2022 End: 10-01-2023 Tobacco smoking status ARIS Unknown if ever smoked [facility] Start: 1980 Sex Assigned At Female [facility] Start: 10-01-2023 Tobacco smoking status NHIS Never smoked tobacco (finding) [facility] NEGATED: Highlighted row [facility] Mental Status Date Assessment Result Facility 03-03-2023 Cognitive function Voice/Name [facility] Work Phone: Evaluation note Note Date & Type Note Facility Evaluation note Diagnosis Onset Date Health care maintenance acut e 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 Obesity (BMI 30.0-34.9) 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 Palpitations chronic [facility] Work Phone: Evaluation note Note Date & Type Note Facility Evaluation note Diagnosis Onset Date Health care maintenance acut e 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 Obesity (BMI 30.0-34.9) 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 Palpitations chronic Obesity (BMI 30.0-34.9) 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 Palpitations chronic [facility] Work Phone: Evaluation note Note Date & Type Note Facility Evaluation note Diagnosis Onset Date Generalized anxiety disorder chronic Palpitations chronic Encounter for routine gyneco logical examination noneactive [facility] Work Phone: Evaluation note Note Date & Type Note Facility Evaluation note No assessment information availa [facility] Work Phone: Summary Purpose Family History Relationship Condition Age at Onset Recorded Date/T willie grandmother Malignant neoplasm of colon Unknown mother Diabetes mellitus Unknown grandfather Myocardial infarction 74 Cerebrovascular accident (CVA) Unknown Advance Directives Advance Directive Response Recorded Date/ Time Living Will No March 03, 2023 5:58pm Power of Postdoctoral Research Associate No March 03 5:58pm Advance Directive Response Recorded Date/ Time Living Will No August 01 023 12:35pm Power of Postdoctoral Research Associate No August 01, 2023 12:35pm Advance Directive Response Recorded Date/ Time Living Will No August 01, 2 023 1:35pm Do you have a Healthcare Power of Postdoctoral Research Associate? 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 Ronak Gant MD Primary Care Provider Active Team Status: Inactive Member Role Status Dates Dr. Ronak Gant MD Attending Provider Active Team Status: Inactive Member Role Status Dates Dr. Ronak Gant MD Primary Care Renu edmonds, Attending Provider, Referring Provider Active Team Status: Inactive Member Role Status Dates Dr. Ronak Gant MD Primary Care Provider Active Dr. Carlos Alberto Figueroa DO Emergency Provider Active Team Status: Inactive Member Role Status Dates Dr. Ronak Gant MD Primary Care Provider, Refer ring Provider Active Bhargavi Alcocer CNM Attending Provider Active Team Status: Inactive Member Role Status Dates Dr. Ronak Gant MD Primary Care Provider Active Bhargavi Alcocer CNM Attending Provider Active Team Status: Inactive Member Role Status Dates Dr. Ronak Gant MD Attending Provider Active Start: January 16, 2025 End: January 16, 2025 Dr. Ronak Gant MD Referring Provider Active Start: January 16, 2025 End: January 16, 2025 Sadiealexa Montilla VSTete, GAS ROLLER OPERATOR-C Primary Care Provider Activ e Start: January 16, 2025 End: January 16, 2025 Team Status: Active Member Role Status Dates Dr. Ronak Gant MD Primary Care Provider Active Start: January 16, 2025 Dr. Ronak Gant MD Attending Provider Active Start: January 16, 2025 Dr. Ronak Gant MD Referring Provider Active Start: January 16, 2025 Goals (unrecognized section and content) Goals may be documented in a n alternate sectionGoals may be documented in an alternate sectionGoals may be documented in an alternate sectionGoals may be documented in an alternate sectionGoals may be documented in an alternate section FOR RECORDS PERTAINING TO PATIENTS WHO ARE [...] BE BASED ON THE PRIMARY CLINICAL RECORDS. [employer] provides no warranty or guarantee of the accuracy or completeness of information in this document.
== END | disposition home or self-care (01) ==
LOC: BIMLAB 11:36
PROVIDERS: PCP Internal Medicine; Referring Provider Internal Medicine; Visit Provider Internal Medicine
DX: Z00.00 Encounter for general adult medical examination without abnormal findings (principal); E56.9 Vitamin deficiency, unspecified
CPT/HCPCS: 36415; 80053; 80061; 82306; 82607; 85025

== ENCOUNTER → 2025-01-27 | Outpatient (CLI) | payer OTHER, SELFPAY ==
--- NOTE | 2025-01-27 12:15 | BI_ITS ---
EXAM: SCRN MAMM (CAD)W/ASHWINI BILAT DATE: 01/27/2025 CLINICAL HISTORY: F, Age 44 y/o , BREAST CANCER SCREENING TECHNIQUE: SCRN MAMM (CAD)W/ASHWINI BILAT COMPARISON: Prior exam(s) were compared FINDINGS: TISSUE DENSITY: The breast tissue is extremely dense which lowers the sensitivity of mammography. Bilateral Breast Mammographic Findings: No suspicious masses, calcifications or other abnormalities are identified. BI/SCRN MAMM (CAD)W/ASHWINI BILAT IMPRESSION: No mammographic evidence of malignancy in either breast OVERALL FINAL ASSESSMENT BI-RADS 1: NEGATIVE. RECOMMEND ANNUAL MAMMOGRAPHIC SCREENING. RECOMMENDATION: Routine annual follow-up in 1 Year A letter with findings and recommendations will be mailed to the patient. Reading Location: [id number]
--- OUTSIDE RECORDS SUMMARY | 2025-01-27 22:09 | XMS RPT_ITS | CCD ---
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 Ronak Gant Attending Provider [phone] Alfreda, Dr. Simons Primary Care Provider [phone] Dr. Ronak Gant Referring Provider [phone] Alfreda, Dr. Simons Primary Care Provider [phone] Dr. Ronak Gant Attending Provider [phone] Dr. Ronak Gant Referring Provider [phone] SARABJIT Alcocer Attending Provider Alfreda GOMEZ, Dr. Simons Attending Provider [phone] Dr. Ronak Gant MD Referring Provider [phone] Roldan [employer] ANALYST-CSadie Primary Care Provider Alfreda GOMEZ, Dr. Simons Primary Care Provider Sadie Mcbride Primary Care Unavailabl e Sadie Mcbride Attending Unavailabl e Alfreda, Efewongbe Primary Care Unavailable Oleghe, Efewongbe Attending Unavailable Oleghe, Efewongbe Referring Unavailable Oleghe, Efewongbe Attending Unavailable Oleghe, Efewongbe Referring Unavailable Oleghe, Efewongbe Primary Care Unavailable Oleghe, Efewongbe Attending Unavailable Oleghe, Efewongbe Referring Unavailable Sadie Mcbride Primary Care Unavailabl e Medications Current Medications Medication Drug Class(es) Dates Sig (Normalized) Sig (Original) [place] (Nk) (1 source) Start: 01-19-2023 [place] (Nk) Active January 19, 2023 12:00am Semaglutide 2.5 mg/mL solution (2 sources) Start: 01-16-2025 Semaglutide 2.5 mg/mL solution Active mg SC .WEEKLY January 16, 2025 12:00am Completed/Discontinued Medications Medication Drug Class(es) Dates Sig (Normalized) Sig (Original) escitalopram 10 mg oral tablet (6 sources) Serotonin Reuptake Inhibitor Start: 04-13-2023 End: [...] 09, 2023 12:00am April 13, 2023 10:39am Vit,Ooys48-Nrya-Gwhsl (Prenatabs Fa ) 1 TABLET tablet (6 sources) Start: 02-16-2014 End: 12-08-2022 take 1 tablet by mouth once daily Vit,Bsml97-Gahz-Fhcit (Prenatabs Fa ) 1 TABLET tablet Discontinued 1 {tbl} PO DAILY February 16, 2014 12:00am December 08, 2022 10:32am Start: 02-16-2014 End: 12-08-2022 take 1 tablet by mouth once daily Vit,Xolk33-Iokv-Lrlrc (Prenatab s Fa ) 1 TABLET tablet Discontinued 1 TABLET PO DAILY February 15, 2014 11:00pm December 08, 2022 9:32am Start: 02-16-2014 End: 12-08-2022 take 1 tablet by mouth once daily Vit,Gygz16-Ztxx-Xirjc (Prenatab s Fa ) 1 TABLET tablet Discontinued 1 TABLET PO DAILY February 16, 2014 12:00am December 08, 2022 10:32am Problems Problem Classification Problem Date Documented Da te Episodic/Chronic Anxiety disorders (6 sources) Generalized anxiety disorder; Translations: [Generalized anxiety disorder] Onset: 07-07-2024 03-09-2023 Chronic Cardiac dysrhythmias (11 sources) Palpitations; Translations: [Palpitations] 12-08-2022 Episodic External cause codes: Struck by; against (1 source) Struck by baseball, initial encounter; Translations: [Struck by baseball, initial encounter] Onset: 11-13-2018 Nonspecific chest pain (9 sources) Chest pain; Translations: [Chest pain, unspecified] 12-08-2022 Episodic Nutritional deficiencies (4 sources) Vitamin deficiency; Translations: [Vitamin deficiency, unspecified] Onset: 01-16-2025 01-16-2025 Episodic Open wounds of head; neck; and trunk (3 sources) Laceration without foreign body of lip, initial encounter; Translations: [Laceration without foreign body of lip, initial encounter] Onset: 11-13-2018 Episodic Other nutritional; endocrine; and metabolic disorders (7 sources) Obese class I; Translations: [Obesity, unspecified] 12-08-2022 Chronic Other nutritional; endocrine; and metabolic disorders (4 sources) Obesity, unspecified; Translations: [Obesity, unspecified] 12-08-2022 Chronic Other screening for suspected conditions (not mental disorders or infectious disease) (1 source) Encounter for screening mammogram for malignant neoplasm of breast; Translations: [Encounter for screening mammogram for malignant neoplasm of breast] Onset: 01-23-2025 Episodic Spondylosis; intervertebral disc disorders; other back problems (3 sources) Neck pain; Translations: [Cervicalgia] 03-09-2023 Episodic Unclassified (2 sources) Z00.00 - Encounter for general adult medical examination without abnormal findings Results Test Name Value Interpretation Reference Range Facility Absolute lymphocyte countOrd ered By: Ronak Gant on 01-16-2025 Lymphocytes Auto (Unsp spec) [#/Vol] 1.68 10*3/uL 0.83-4.51 [facility] Absolute neutrophil countOrd ered By: Ronak Gant on 01-16-2025 Neutrophils (Bld) [#/Vol] 3.4 10*3/uL 2.0-7.7 [facility] Anion gap in Serum or Plasma Ordered By: Ronak Gant on 01-16-2025 Anion gap [Moles/Vol] 9 mmol/L 5-15 [facility] Automated lymphocyte count a s percentage of total leukocytesOrdered By: Jovonbebe Alfreda on 01-16-2025 Lymphocytes/100 WBC Auto (Unsp spec) 29.6 % - [facility] BUN/creatinine ratioOrdered By: Prasannaaustinbebe Gant on 01-16-2025 Urea nitrogen/Creatinine [Mass ratio] 12.6 mg/mg 10- [facility] Basophil percentageOrdered B y: Ronak Gant on 01-16-2025 Basophils/100 WBC (Bld) 0.5 % 0-1 [facility] Bilirubin, totalOrdered By: fannykylahbebe Curtisherman on 01-16-2025 Bilirubin [Mass/Vol] 0.42 mg/dL 0.00-1.30 [facility] CBC W/Diff, Automatedon 01-04-2024 Absolute Lymph 1.68 X10 3/uL Normal 0.83-4.51 [facility] Comment on above: Performed By: #### L 500.4050, L100.0100, L500.4100, L503.0106, L506.1001 #### [facility] [address] [place], [address] Absolute Neut 3.4 X10 3/uL Normal 2.0-7.7 [facility] Comment on above: Performed By: #### L 500.4050, L100.0100, L500.4100, L503.0106, L506.1001 #### [facility] [address] [place], [address] Basophils/100 WBC (Bld) 0.5 % Normal 0-1 [facility] Comment on above: Performed By: #### L 500.4050, L100.0100, L500.4100, L503.0106, L506.1001 #### [facility] [address] [place], [address] Eosinophils/100 WBC (Bld) 2.1 % Normal 0-5 [facility] Comment on above: Performed By: #### L 500.4050, L100.0100, L500.4100, L503.0106, L506.1001 #### [facility] [address] [place], [address] Erythrocyte distribution width (RBC) [Ratio] 13.0 % Normal 11.6-14.6 [facility] Comment on above: Performed By: #### L 500.4050, L100.0100, L500.4100, L503.0106, L506.1001 #### [facility] [address] [place], [address] Hematocrit (Bld) [Volume fraction] 39.6 % Normal 37-47 [facility] Comment on above: Performed By: #### L 500.4050, L100.0100, L500.4100, L503.0106, L506.1001 #### [facility] [address] [place], [address] Hemoglobin (Bld) [Mass/Vol] 12.9 g/dL Normal 12.0-15.0 [facility] Comment on above: Performed By: #### L 500.4050, L100.0100, L500.4100, L503.0106, L506.1001 #### [facility] [address] [place], [address] IG% 0.200 Normal 0.0-0.9 [facility] Comment on above: Result Comment: IG% - Immature Granulocytes (promyelocytes, myelocytes and metamyelocytes) > 1% indicates that a LEFT SHIFT is Present. Performed By: #### L 500.4050, L100.0100, L500.4100, L503.0106, L506.1001 #### [facility] [address] [place], [address] Lymphocytes/100 WBC (Bld) 29.6 % Normal 19-41 [facility] Comment on above: Performed By: #### L 500.4050, L100.0100, L500.4100, L503.0106, L506.1001 #### [facility] [address] [place], [address] MCH (RBC) [Entitic mass] 30.4 pg Normal 27.0-32.0 [facility] Comment on above: Performed By: #### L 500.4050, L100.0100, L500.4100, L503.0106, L506.1001 #### [facility] [address] [place], [address] MCHC (RBC) [Mass/Vol] 32.6 g/dL Normal 32-36 [facility] Comment on above: Performed By: #### L 500.4050, L100.0100, L500.4100, L503.0106, L506.1001 #### [facility] [address] [place], [address] MCV (RBC) [Entitic vol] 93.2 fL Normal 81-99 [facility] Comment on above: Performed By: #### L 500.4050, L100.0100, L500.4100, L503.0106, L506.1001 #### [facility] [address] [place], [address] Monocytes/100 WBC (Bld) 7.6 % Normal 0-10 [facility] Comment on above: Performed By: #### L 500.4050, L100.0100, L500.4100, L503.0106, L506.1001 #### [facility] [address] [place], [address] Neutrophils/100 WBC (Bld) 60.0 % Normal 47-70 [facility] Comment on above: Performed By: #### L 500.4050, L100.0100, L500.4100, L503.0106, L506.1001 #### [facility] [address] [place], [address] Nucleated RBC (Bld) [#/Vol] 0 10*3/uL Normal 0-5 [facility] Comment on above: Performed By: #### L 500.4050, L100.0100, L500.4100, L503.0106, L506.1001 #### [facility] [address] [place], [address] Platelet mean volume (Bld) [Entitic vol] 9.8 fL Normal 6.2-12.0 [facility] Comment on above: Performed By: #### L 500.4050, L100.0100, L500.4100, L503.0106, L506.1001 #### [facility] [address] [place], [address] Platelets (Bld) [#/Vol] 310 10*3/uL Normal 150-450 [facility] Comment on above: Performed By: #### L 500.4050, L100.0100, L500.4100, L503.0106, L506.1001 #### [facility] [address] [place], [address] RBC (Bld) [#/Vol] 4.25 10*6/uL Normal 4.2-5.4 [facility] Comment on above: Performed By: #### L 500.4050, L100.0100, L500.4100, L503.0106, L506.1001 #### [facility] [address] [place], [address] RDW SD 44.2 fl High 35.1-43.9 [facility] Comment on above: Performed By: #### L 500.4050, L100.0100, L500.4100, L503.0106, L506.1001 #### [facility] [address] [place], [address] WBC (Bld) [#/Vol] 5.7 10*3/uL Normal 4.4-11.0 [facility] Comment on above: Performed By: #### L 500.4050, L100.0100, L500.4100, L503.0106, L506.1001 #### [facility] [address] [place], [address] Calculated very low density lipoprotein (VLDL) cholesterol measurementOrdered By: Ronak Gant on 01-16-2025 Calculated very low density lipoprotein (VLDL) cholesterol measurement 13 mg/dL 5-40 [facility] Carbon dioxide, total [Moles /volume] in Central venous bloodOrdered By: Ronak Gant on 01-16-2025 CO2 [Moles/Vol] 24.8 mmol/L 21.0-32.0 [facility] Chloride assayOrdered By: Shahrzad Gant on 01-16-2025 Chloride [Moles/Vol] 103 mmol/L 98-108 [facility] Comprehensive Metabolic Prof ilon 01-16-2025 Albumin [Mass/Vol] 4.2 g/dL Normal 3.5-5.0 [facility] Comment on above: Performed By: #### L 500.4050, L100.0100, L500.4100, L503.0106, L506.1001 #### [facility] [address] [place], [address] Albumin/Globulin [Mass ratio] 1.5 {ratio} Normal 0.9-2.4 [facility] Comment on above: Performed By: #### L 500.4050, L100.0100, L500.4100, L503.0106, L506.1001 #### [facility] [address] [place], [address] ALK PHOS 42 U/L Normal 35-104 [facility] Comment on above: Performed By: #### L 500.4050, L100.0100, L500.4100, L503.0106, L506.1001 #### [facility] [address] [place], [address] ALT [Catalytic activity/Vol] 14 U/L Normal <=34 [facility] Comment on above: Performed By: #### L 500.4050, L100.0100, L500.4100, L503.0106, L506.1001 #### [facility] [address] [place], [address] AST [Catalytic activity/Vol] 16 U/L Normal <=31 [facility] Comment on above: Performed By: #### L 500.4050, L100.0100, L500.4100, L503.0106, L506.1001 #### [facility] [address] [place], [address] Bilirubin [Mass/Vol] 0.42 mg/dL Normal 0.00-1.30 [facility] Comment on above: Performed By: #### L 500.4050, L100.0100, L500.4100, L503.0106, L506.1001 #### [facility] [address] [place], [address] BUN/CRE 12.6 RATIO Normal 10-20 [facility] Comment on above: Performed By: #### L 500.4050, L100.0100, L500.4100, L503.0106, L506.1001 #### [facility] [address] [place], [address] Calcium [Mass/Vol] 9.0 mg/dL Normal 7.6-11.0 [facility] Comment on above: Performed By: #### L 500.4050, L100.0100, L500.4100, L503.0106, L506.1001 #### [facility] [address] [place], [address] Chloride [Moles/Vol] 103 mmol/L Normal 98-108 [facility] Comment on above: Performed By: #### L 500.4050, L100.0100, L500.4100, L503.0106, L506.1001 #### [facility] [address] [place], [address] CO2 [Moles/Vol] 24.8 mmol/L Normal 21.0-32.0 [facility] Comment on above: Performed By: #### L 500.4050, L100.0100, L500.4100, L503.0106, L506.1001 #### [facility] [address] [place], [address] Creatinine [Mass/Vol] 0.74 mg/dL Normal 0.70-1.20 [facility] Comment on above: Performed By: #### L 500.4050, L100.0100, L500.4100, L503.0106, L506.1001 #### [facility] [address] [place], [address] GAP 9 Normal 5-15 [facility] Comment on above: Performed By: #### L 500.4050, L100.0100, L500.4100, L503.0106, L506.1001 #### [facility] [address] [place], [address] GFR/1.73 sq M.predicted among non-blacks MDRD (S/P/Bld) [Vol rate/Area] 104 mL/min/{1.73_m2} Normal >60 [facility] Comment on above: Result Comment: mL/m in/1.73m2 CKD-EPI Creatinine Equation (2020) Performed By: #### L 500.4050, L100.0100, L500.4100, L503.0106, L506.1001 #### [facility] [address] [place], [address] Globulin (S) [Mass/Vol] 2.8 g/dL Normal 2.2-4.2 [facility] Comment on above: Performed By: #### L 500.4050, L100.0100, L500.4100, L503.0106, L506.1001 #### [facility] [address] [place], [address] Glucose [Mass/Vol] 103 mg/dL High 70-99 [facility] Comment on above: Performed By: #### L 500.4050, L100.0100, L500.4100, L503.0106, L506.1001 #### [facility] [address] [place], [address] Potassium [Moles/Vol] 4.7 mmol/L Normal 3.3-5.1 [facility] Comment on above: Performed By: #### L 500.4050, L100.0100, L500.4100, L503.0106, L506.1001 #### [facility] [address] [place], [address] Sodium [Moles/Vol] 137 mmol/L Normal 133-145 [facility] Comment on above: Performed By: #### L 500.4050, L100.0100, L500.4100, L503.0106, L506.1001 #### [facility] [address] [place], [address] T PROT 6.9 g/dL Normal 5.9-8.4 [facility] Comment on above: Performed By: #### L 500.4050, L100.0100, L500.4100, L503.0106, L506.1001 #### [facility] [address] [place], [address] Urea nitrogen [Mass/Vol] 9 mg/dL Normal 4-19 [facility] Comment on above: Performed By: #### L 500.4050, L100.0100, L500.4100, L503.0106, L506.1001 #### [facility] [address] [place], [address] Eosinophil percentageOrdered By: Ronak Gant on 01-16-2025 Eosinophils/100 WBC (Bld) 2.1 % 0-5 [facility] Erythrocyte distribution wid th ratioOrdered By: fannyaustinbebe Gant on 01-16-2025 Erythrocyte distribution width (RBC) [Ratio] 13.0 % 11.6-14.6 [facility] Erythrocyte distribution wid th standard deviationOrdered By: Prasannaaustinbebe Gant on 01-16-2025 Erythrocyte distribution width (RBC) [Ratio] 44.2 fl High 35.1-43.9 [facility] Glomerular filtration rate ( GFR) estimation/1.73 sq m using serum, plasma, or whole bOrdered By: Prasannaaustinbebe Gant on 01-16-2025 GFR/1.73 sq M.predicted among non-blacks MDRD (S/P/Bld) [Vol rate/Area] 104 mL/min/{1.73_m2} >60 [facility] Comment on above: mL/min/1.73m2 CKD-EP I Creatinine Equation (2020) Hematocrit Auto (Bld) [Volum e fraction]Ordered By: Ronak Gant on 01-16-2025 Hematocrit (Bld) [Volume fraction] 39.6 % 37-47 [facility] Hemoglobin measurementOrdere d By: Ronak Gant on 01-16-2025 Hemoglobin (Bld) [Mass/Vol] 12.9 g/dL 12.0-15.0 [facility] Immature granulocytes/100 WB C Auto (Bld)Ordered By: Ronak Gant on 01-16-2025 Immature granulocytes/100 WBC (Bld) 0.200 % 0.0-0.9 [facility] Comment on above: IG% - Immature Granu locytes (promyelocytes, myelocytes and metamyelocytes) > 1% indicates that a LEFT SHIFT is Present. Internal Medicine Office Vis iton 01-16-2025 Internal Medicine Office Visit [facility] [address] [place], [place] [address] OFFICE VISIT Date of Service: 01/16/25 MR#: [id number] Acct: [id number] Name: CORTEZ RIDLEY Rep #: [id number] : 1980 Provider: Dr. Ronak olvera MD Age/Sex: 44/F Location: [facility] Status: Signed Intake Vital Signs 12/10/23 13:12 01/16/25 11:21 Height 5 ft 3 in 5 ft 3 in Weight: 161 lb BMI 28.5 BP 104/78 Blood Pressure Location Lt brachial Position Sitting Respiration 16 Pulse 72 Pulse Source Monitor Temp 98.9 F Temp Source Temporal Pulse Oximetry (%) 98 Oxygen Delivery Method room air Intake Visit Reasons: YEARLY Chief Complaint: YEARLY Is patient in pain?: No Allergies No Known Allergies Allergy (Verified 01/16/25 11:19) Medications ???Medication ???Instructions ???Recorded ???Confirmed ???Type semaglutide 2.5 mg/mL subcutaneous mg subcut .WEEKLY 01/16/2501/16 History solution [facility] Medical History (Updated 01/16/25 @ 11:[address] Ronak Gant MD) Vitamin deficiency Preventative health care Generalized anxiety disorder Neck pain Health care maintenance Obesity (BMI 30.0-34.9) Palpitations Intermittent chest pain Surgical History History of dilation and curettage Family History Grandmother Colon cancer Mother Diabetes Grandfather Myocardial infarction, Onset Age: 73 CVA (cerebral vascular accident) Social History adopted: No household members: family housing: house number of children: 3 current occupational status: employed current occupation: [employer] current occupational exposures/hazards: No pets and animals: [...] history: - Bhargavi HPI HPI Chief Complaint: YEARLY Details: CORTEZ RIDLEY, is a 44 F who presents to the office today for her yearly visit. No acute concerns reported at this time. Has been relatively stable. No family history changes. Started on compounded semaglutide and she states that she has lost about 26 pounds with it. No concerning side effects. Stays active. Also recently started on vitamin D and B12 injections due to labs showing insufficiency. Tolerating these well. Follows up with [employer] [facility], Pap smear a year ago. No family history of colon cancer. Yet to establish with dermatology. ROS Const Constitutional: No body ache, chills, excessive sweating, fatigue, fever(s), frequent falls, headache(s), snoring, weakness, sleep problems or change in appetite Eyes Eyes: No blurry vision, change in vision, bulging eyes, floaters, visual disturbances or Light sensitivity ENT ENT: No abnormal hearing, ear or mastoid pain, tinnitus, nasal congestion, nasal discharge, headache(s), neck pain or sore throat Resp Respiratory: No cough, shortness of breath, snoring or wheezing Cardio Cardiology: No chest pain at rest, chest pain with exertion, excessive sweating, shortness of breath, dyspnea on exertion, lightheadedness, orthopnea or palpitations Gastro GI: No abdominal pain, change in bowel habits, constipation, cramping, diarrhea or nausea/dyspepsia Genitourinary-Fema le: No burning urination, painful urination, urinary incontinence, urinary frequency, suprapubic fullness or side pain Musc Musculoskeletal: No abnormal gait, joint pain, back pain, limited range of motion, muscle weakness, neck pain or numbness Skin Skin: No dry skin, redness, excessive hair growth, yellowing of the eye, lesions, itchy eyes, rash or wounds Neuro Neurology: No abnormal gait, abnormal hearing, behavioral changes, unsteady gait/balance, weakness, frequent falls, headache(s), memory loss, numbness or visual disturbances Psych Psychiatric: No anxiety, No behavioral changes, No change in appetite, No depression, No memory loss, No panic attacks and No Thoughts of harming yourself/Others Endo Endocrine: No cold intolerance, excessive sweating, fatigue, flushing, heat intolerance, increased thirst/drinking or increased hunger Aller/Imm Allergy/Immunologi c: No itchy eyes, seasonal allergy symptoms, hives or wheezing Keanu/Lymp Hematologic/Lympha tic: No easy bleeding, easy bruis (more content not included)... Normal [facility] LDL calc ser/plasOrdered By: Ronak Gant on 01-16-2025 Cholesterol in LDL [Mass/Vol] 108 mg/dL [facility] Comment on above: Dzeaxntcds=879-773 m g/dL & Higher Voxa=197 mg/dL or greater Laboratory - Chemistry and C hemistry - challengeOrdered By: Ronak Gant on 01-16-2025 AST [Catalytic activity/Vol] 16 U/L <32 [facility] Lipid Profileon 01-16-2025 CHOL:HDL 3.05 Normal [facility] Comment on above: Performed By: #### L 500.4050, L100.0100, L500.4100, L503.0106, L506.1001 #### [facility] [address] [place], [address] Cholesterol [Mass/Vol] 179 mg/dL Normal <=200 [facility] Comment on above: Result Comment: Chol esterol level, Desirable <200 mg/dL Borderline high cholesterol 200-239 mg/dL High cholesterol >=240 mg/dL Recommendations of the NCEP Adult Treatment Panel for the following risk-cutoff thresholds for the [place] [place] population. Performed By: #### L 500.4050, L100.0100, L500.4100, L503.0106, L506.1001 #### [facility] [address] [place], [address] Cholesterol in HDL [Mass/Vol] 59 mg/dL Normal [facility] Comment on above: Result Comment: Nikki onal Cholesterol Education Program (NCEP) guidelines: <40 mg/dL: Low HDL-cholesterol (major risk factor for CHD) >= 60 mg/dL: High HDL-cholesterol (negative risk factor for CHD) HDL-cholesterol is affected by a number of factors, e.g. smoking, exercise, hormones, sex and age. Performed By: #### L 500.4050, L100.0100, L500.4100, L503.0106, L506.1001 #### [facility] [address] [place], [address] Cholesterol in LDL [Mass/Vol] 108 mg/dL Normal [facility] Comment on above: Result Comment: Bord pfipka=804-493 mg/dL Higher Wejv=111 mg/dL or greater Performed By: #### L 500.4050, L100.0100, L500.4100, L503.0106, L506.1001 #### [facility] [address] [place], [address] Cholesterol in VLDL [Mass/Vol] 13 mg/dL Normal 5-40 [facility] Comment on above: Performed By: #### L 500.4050, L100.0100, L500.4100, L503.0106, L506.1001 #### [facility] [address] [place], [address] Triglyceride [Mass/Vol] 64 mg/dL Normal [facility] Comment on above: Result Comment: The drugs N-Acetylcysteine and Metamizole may falsely depress this assay. Normal range: <150 mg/dL Borderline High: 150-199 mg/dL High: 200-499 mg/dL Very High: >500 mg/dL Performed By: #### L 500.4050, L100.0100, L500.4100, L503.0106, L506.1001 #### [facility] [address] [place], [address] MCV (mean corpuscular volume ) determinationOrdered By: Ronak Gant on 01-16-2025 MCV (RBC) [Entitic vol] 93.2 fL 81-99 [facility] Mean corpuscular hemoglobin (MCH) determinationOrdered By: Ronak Gant on 01-16-2025 MCH (RBC) [Entitic mass] 30.4 pg 27.0-32.0 [facility] Mean corpuscular hemoglobin concentration (MCHC) determinationOrdered By: Ronak Gant on 01-16-2025 MCHC (RBC) [Mass/Vol] 32.6 g/dL 32-36 [facility] Mean platelet volume determi nationOrdered By: Ronak Gant on 01-16-2025 Platelet mean volume (Bld) [Entitic vol] 9.8 fL 6.2-12.0 [facility] Monocyte percentageOrdered B y: Ronak Gant on 01-16-2025 Monocytes/100 WBC (Bld) 7.6 % 0-10 [facility] Neutrophil percentageOrdered By: Ronak Gant on 01-16-2025 Neutrophils/100 WBC (Bld) 60.0 % 47-70 [facility] Nucleated red blood cell per centageOrdered By: Ronak Gant on 01-16-2025 Nucleated RBC/100 WBC (Bld) [Ratio] 0 % 0-5 [facility] Platelet countOrdered By: Shahrzad Gant on 01-16-2025 Platelets (Bld) [#/Vol] 310 10*3/uL 150-450 [facility] Potassium measurement (mass/ volume)Ordered By: Ronak Gant on 01-16-2025 Potassium (Unsp spec) [Mass/Vol] 4.7 mmol/L 3.3-5.1 [facility] RBC Auto (Bld) [#/Vol]Ordere d By: Ronak Gant on 01-16-2025 RBC (Bld) [#/Vol] 4.25 10*6/uL 4.2-5.4 [facility] Screening total cholesterol/ high density lipoprotein (HDL) cholesterol ratioOrdered By: Ronak Gant on 01-16-2025 Cholesterol.total/Cholest cristopher in HDL [Mass ratio] 3.05 {ratio} [facility] Serum creatinine measurement (mass/volume)Ordered By: Ronak Gant on 01-16-2025 Creatinine [Mass/Vol] 0.74 mg/dL 0.70-1.20 [facility] Serum globulin measurementOr dered By: Ronak Gant on 01-16-2025 Globulin (S) [Mass/Vol] 2.8 g/dL 2.2-4.2 [facility] Serum glucose measurement (m ass/volume)Ordered By: Ronak Gant on 01-16-2025 Glucose [Mass/Vol] 103 mg/dL High 70-99 [facility] Serum or plasma alanine holloway otransferase (ALT) measurementOrdered By: Ronak Gant on 01-16-2025 ALT [Catalytic activity/Vol] 14 U/L <35 [facility] Serum or plasma albumin julia urement (mass/volume)Ordered By: Ronak Gant on 01-16-2025 Albumin [Mass/Vol] 4.2 g/dL 3.5-5.0 [facility] Serum or plasma albumin/glob ulin mass ratioOrdered By: Ronak Gant on 01-16-2025 Albumin/Globulin [Mass ratio] 1.5 {ratio} 0.9-2.4 [facility] Serum or plasma alkaline akhil sphatase measurementOrdered By: Ronak Gant 01-16-2025 ALP [Catalytic activity/Vol] 42 U/L 35-104 [facility] Serum or plasma calcium julia urement (mass/volume)Ordered By: Ronak Gant on 01-16-2025 Calcium [Mass/Vol] 9.0 mg/dL 7.6-11.0 [facility] Serum or plasma cholesterol in HDL measurement (mass/volume)Ordered By: Ronak Gant on 01-16-2025 Cholesterol in HDL [Mass/Vol] 59 mg/dL >40 [facility] Comment on above: National Cholesterol Education Program (NCEP) guidelines:<40 mg/dL: Low HDL-cholesterol (major risk factor for CHD)>= 60 mg/dL: High HDL-cholesterol (negative risk factor for CHD)HDL-cholesterol is affected by a number of factors, e.g. smoking, exercise, hormones, sex and age. Serum or plasma cholesterol measurement (mass/volume)Ordered By: Ronak Gant on 01-16-2025 Cholesterol [Mass/Vol] 179 mg/dL <201 [facility] Comment on above: Cholesterol level, D esirable <200 mg/dLBorderline high cholesterol 200-239 mg/dLHigh cholesterol >=240 mg/dLRecommendations of the NCEP Adult Treatment Panel for the following risk-cutoff thresholds for the [place] population. Serum or plasma urea nitroge n measurement (mass/volume)Ordered By: Ronak Gant on 01-16-2025 Urea nitrogen [Mass/Vol] 9 mg/dL 4-19 [facility] Sodium levelOrdered By: Prasanna Gant on 01-16-2025 Sodium [Moles/Vol] 137 mmol/L 133-145 [facility] Total proteinOrdered By: Neil Gant on 01-16-2025 Protein [Mass/Vol] 6.9 g/dL 5.9-8.4 [facility] Triglycerides measurementOrd ered By: Ronak Gant on 01-16-2025 Triglyceride [Mass/Vol] 64 mg/dL <199 [facility] Comment on above: The drugs N-Acetylcy steine and Metamizole may falsely depress this assay. Normal range: <150 mg/dLBorderline High: 150-199 mg/dLHigh: 200-499 mg/dLVery High: >500 mg/dL Vitamin B12on 01-16-2025 Cobalamin (Vitamin B12) [Mass/Vol] 353 pg/mL Normal 180-914 [facility] Comment on above: Performed By: #### L 500.4050, L500.4100, L503.0105, L506.1000, L501.9985, L100.0100, L501.9520 #### [facility] [address] [place], [address] Vitamin B12 ser/plasOrdered By: Ronak Gant on 01-16-2025 Cobalamin (Vitamin B12) [Mass/Vol] 353 pg/mL 180-914 [facility] Vitamin D,25 Hydroxyon 01-16 Vitamin D 25-OH 39.6 ng/mL Normal 30-100 [facility] Comment on above: Result Comment: Nay min D Status Deficiency: <20 ng/mL (50nmol/L) Insufficiency: 20-30 ng/mL (50-75 nmol/L) Sufficiency: 30-100 ng/mL (75-250 nmol/L) Toxicity: >100 ng/mL (>250 nmol/L) Performed By: #### L 500.4050, L500.4100, L503.0105, L506.1000, L501.9985, L100.0100, L501.9520 #### [facility] [address] [place], [address] White blood cell (WBC) count Ordered By: Ronak Gant on 01-16-2025 WBC (Bld) [#/Vol] 5.7 10*3/uL 4.4-11.0 [facility] CBC W/Diff, Automatedon 11- Absolute Lymph 1.48 X10 3/uL Normal 0.83-4.51 [facility] Comment on above: Performed By: #### L 500.4050, L500.4100, L503.0105, L506.1000, L501.9985, L100.0100, L501.9520 #### [facility] [address] [place], [address] Absolute Neut 3.7 X10 3/uL Normal 2.0-7.7 [facility] Comment on above: Performed By: #### L 500.4050, L500.4100, L503.0105, L506.1000, L501.9985, L100.0100, L501.9520 #### [facility] [address] [place], [address] Basophils/100 WBC (Bld) 0.3 % Normal 0-1 [facility] Comment on above: Performed By: #### L 500.4050, L500.4100, L503.0105, L506.1000, L501.9985, L100.0100, L501.9520 #### [facility] [address] [place], [address] Eosinophils/100 WBC (Bld) 2.1 % Normal 0-5 [facility] Comment on above: Performed By: #### L 500.4050, L500.4100, L503.0105, L506.1000, L501.9985, L100.0100, L501.9520 #### [facility] [address] [place], [address] Erythrocyte distribution width (RBC) [Ratio] 12.1 % Normal 11.6-14.6 [facility] Comment on above: Performed By: #### L 500.4050, L500.4100, L503.0105, L506.1000, L501.9985, L100.0100, L501.9520 #### [facility] [address] [place], [address] Hematocrit (Bld) [Volume fraction] 40.6 % Normal 37-47 [facility] Comment on above: Performed By: #### L 500.4050, L500.4100, L503.0105, L506.1000, L501.9985, L100.0100, L501.9520 #### [facility] [address] [place], [address] Hemoglobin (Bld) [Mass/Vol] 13.2 g/dL Normal 12.0-15.0 [facility] Comment on above: Performed By: #### L 500.4050, L500.4100, L503.0105, L506.1000, L501.9985, L100.0100, L501.9520 #### [facility] [address] [place], [address] IG% 0.200 Normal 0.0-0.9 [facility] Comment on above: Result Comment: IG% - Immature Granulocytes (promyelocytes, myelocytes and metamyelocytes) > 1% indicates that a LEFT SHIFT is Present. Performed By: #### L 500.4050, L500.4100, L503.0105, L506.1000, L501.9985, L100.0100, L501.9520 #### [facility] [address] [place], [address] Lymphocytes/100 WBC (Bld) 25.8 % Normal 19-41 [facility] Comment on above: Performed By: #### L 500.4050, L500.4100, L503.0105, L506.1000, L501.9985, L100.0100, L501.9520 #### [facility] [address] [place], [address] MCH (RBC) [Entitic mass] 30.1 pg Normal 27.0-32.0 [facility] Comment on above: Performed By: #### L 500.4050, L500.4100, L503.0105, L506.1000, L501.9985, L100.0100, L501.9520 #### [facility] [address] [place], [address] MCHC (RBC) [Mass/Vol] 32.5 g/dL Normal 32-36 [facility] Comment on above: Performed By: #### L 500.4050, L500.4100, L503.0105, L506.1000, L501.9985, L100.0100, L501.9520 #### [facility] [address] [place], [address] MCV (RBC) [Entitic vol] 92.7 fL Normal 81-99 [facility] Comment on above: Performed By: #### L 500.4050, L500.4100, L503.0105, L506.1000, L501.9985, L100.0100, L501.9520 #### [facility] [address] [place], [address] Monocytes/100 WBC (Bld) 7.7 % Normal 0-10 [facility] Comment on above: Performed By: #### L 500.4050, L500.4100, L503.0105, L506.1000, L501.9985, L100.0100, L501.9520 #### [facility] [address] [place], [address] Neutrophils/100 WBC (Bld) 63.9 % Normal 47-70 [facility] Comment on above: Performed By: #### L 500.4050, L500.4100, L503.0105, L506.1000, L501.9985, L100.0100, L501.9520 #### [facility] [address] [place], [address] Nucleated RBC (Bld) [#/Vol] 0 10*3/uL Normal 0-5 [facility] Comment on above: Performed By: #### L 500.4050, L500.4100, L503.0105, L506.1000, L501.9985, L100.0100, L501.9520 #### [facility] [address] [place], [address] Platelet mean volume (Bld) [Entitic vol] 9.6 fL Normal 6.2-12.0 [facility] Comment on above: Performed By: #### L 500.4050, L500.4100, L503.0105, L506.1000, L501.9985, L100.0100, L501.9520 #### [facility] [address] [place], [address] Platelets (Bld) [#/Vol] 292 10*3/uL Normal 150-450 [facility] Comment on above: Performed By: #### L 500.4050, L500.4100, L503.0105, L506.1000, L501.9985, L100.0100, L501.9520 #### [facility] [address] [place], [address] RBC (Bld) [#/Vol] 4.38 10*6/uL Normal 4.2-5.4 [facility] Comment on above: Performed By: #### L 500.4050, L500.4100, L503.0105, L506.1000, L501.9985, L100.0100, L501.9520 #### [facility] [address] [place], [address] RDW SD 41.6 fl Normal 35.1-43.9 [facility] Comment on above: Performed By: #### L 500.4050, L500.4100, L503.0105, L506.1000, L501.9985, L100.0100, L501.9520 #### [facility] [address] [place], [address] WBC (Bld) [#/Vol] 5.7 10*3/uL Normal 4.4-11.0 [facility] Comment on above: Performed By: #### L 500.4050, L500.4100, L503.0105, L506.1000, L501.9985, L100.0100, L501.9520 #### [facility] [address] [place], [address] Comprehensive Metabolic Prof ilon 06-18-2024 Albumin [Mass/Vol] 3.6 g/dL Normal 3.2-5.0 [facility] Comment on above: Performed By: #### L 500.4050, L500.4100, L503.0105, L506.1000, L501.9985, L100.0100, L501.9520 #### [facility] [address] [place], [address] Albumin/Globulin [Mass ratio] 1.0 {ratio} Normal 0.9-2.4 [facility] Comment on above: Performed By: #### L 500.4050, L500.4100, L503.0105, L506.1000, L501.9985, L100.0100, L501.9520 #### [facility] [address] [place], [address] ALK P 55 U/L Normal 45-117 [facility] Comment on above: Performed By: #### L 500.4050, L500.4100, L503.0105, L506.1000, L501.9985, L100.0100, L501.9520 #### [facility] [address] [place], [address] ALT [Catalytic activity/Vol] 19 U/L Normal 13-56 [facility] Comment on above: Performed By: #### L 500.4050, L500.4100, L503.0105, L506.1000, L501.9985, L100.0100, L501.9520 #### [facility] [address] [place], [address] AST [Catalytic activity/Vol] 14 U/L Low 15-37 [facility] Comment on above: Performed By: #### L 500.4050, L500.4100, L503.0105, L506.1000, L501.9985, L100.0100, L501.9520 #### [facility] [address] [place], [address] Bilirubin [Mass/Vol] 0.40 mg/dL Normal 0.20-1.00 [facility] Comment on above: Result Comment: For patients on eltrombopag therapy, use of Dimension [place] TBIL is not recommended. Performed By: #### L 500.4050, L500.4100, L503.0105, L506.1000, L501.9985, L100.0100, L501.9520 #### [facility] [address] [place], [address] BUN/CRE 17.6 RATIO Normal 10-20 [facility] Comment on above: Performed By: #### L 500.4050, L500.4100, L503.0105, L506.1000, L501.9985, L100.0100, L501.9520 #### [facility] [address] [place], [address] CA,Total 8.9 mg/dL Normal 8.5-10.1 [facility] Comment on above: Performed By: #### L 500.4050, L500.4100, L503.0105, L506.1000, L501.9985, L100.0100, L501.9520 #### [facility] [address] [place], [address] Chloride [Moles/Vol] 107 mmol/L Normal 98-107 [facility] Comment on above: Performed By: #### L 500.4050, L500.4100, L503.0105, L506.1000, L501.9985, L100.0100, L501.9520 #### [facility] [address] [place], [address] CO2 [Moles/Vol] 27.0 mmol/L Normal 21.0-32.0 [facility] Comment on above: Performed By: #### L 500.4050, L500.4100, L503.0105, L506.1000, L501.9985, L100.0100, L501.9520 #### [facility] [address] [place], [address] Creatinine [Mass/Vol] 0.68 mg/dL Normal 0.55-1.02 [facility] Comment on above: Result Comment: The validity of the calculated GFR GFRAA in patients over 70 years has not been determined. Clinical correlation is essential. Performed By: #### L 500.4050, L500.4100, L503.0105, L506.1000, L501.9985, L100.0100, L501.9520 #### [facility] [address] [place], [address] EST GFR - AA 121 mL/min Normal >60 [facility] Comment on above: Result Comment: Afri can [place] GFR Calc Performed By: #### L 500.4050, L500.4100, L503.0105, L506.1000, L501.9985, L100.0100, L501.9520 #### [facility] [address] [place], [address] GAP 6 Normal 5-15 [facility] Comment on above: Performed By: #### L 500.4050, L500.4100, L503.0105, L506.1000, L501.9985, L100.0100, L501.9520 #### [facility] [address] [place], [address] GFR/1.73 sq M.predicted among non-blacks MDRD (S/P/Bld) [Vol rate/Area] 100 mL/min/{1.73_m2} Normal >60 [facility] Comment on above: Result Comment: Non- GFR Calc Performed By: #### L 500.4050, L500.4100, L503.0105, L506.1000, L501.9985, L100.0100, L501.9520 #### [facility] [address] [place], [address] Globulin (S) [Mass/Vol] 3.6 g/dL Normal 2.2-4.2 [facility] Comment on above: Performed By: #### L 500.4050, L500.4100, L503.0105, L506.1000, L501.9985, L100.0100, L501.9520 #### [facility] [address] [place], [address] Glucose [Mass/Vol] 95 mg/dL Normal 74-106 [facility] Comment on above: Performed By: #### L 500.4050, L500.4100, L503.0105, L506.1000, L501.9985, L100.0100, L501.9520 #### [facility] [address] [place], [address] Potassium [Moles/Vol] 3.9 mmol/L Normal 3.5-5.1 [facility] Comment on above: Performed By: #### L 500.4050, L500.4100, L503.0105, L506.1000, L501.9985, L100.0100, L501.9520 #### [facility] [address] [place], [address] Sodium [Moles/Vol] 139 mmol/L Normal 136-145 [facility] Comment on above: Performed By: #### L 500.4050, L500.4100, L503.0105, L506.1000, L501.9985, L100.0100, L501.9520 #### [facility] [address] [place], [address] T PROT 7.2 g/dL Normal 6.4-8.2 [facility] Comment on above: Performed By: #### L 500.4050, L500.4100, L503.0105, L506.1000, L501.9985, L100.0100, L501.9520 #### [facility] [address] [place], [address] Urea nitrogen [Mass/Vol] 12 mg/dL Normal 7-18 [facility] Comment on above: Performed By: #### L 500.4050, L500.4100, L503.0105, L506.1000, L501.9985, L100.0100, L501.9520 #### [facility] [address] [place], [address] Hemoglobin A1con 06-18-2024 HbA1c (Bld) [Mass fraction] 5.5 % Normal 3.8-5.6 [facility] Comment on above: Result Comment: Norm al < 5.7 % Prediabetic 5.7 - 6.4 % Diabetic >or= 6.5 % Please note range changes. Performed By: #### L 500.4050, L500.4100, L503.0105, L506.1000, L501.9985, L100.0100, L501.9520 #### [facility] [address] [place], [address] Lipid Profileon 06-18-2024 Cholesterol [Mass/Vol] 192 mg/dL Normal 200 [facility] Comment on above: Result Comment: <200 mg/dL Desirable 200-240 mg/dL Borderline >240 mg/dL High Risk Performed By: #### L 500.4050, L500.4100, L503.0105, L506.1000, L501.9985, L100.0100, L501.9520 #### [facility] [address] [place], [address] Cholesterol in HDL [Mass/Vol] 66 mg/dL Normal [facility] Comment on above: Result Comment: The drugs N-Acetylcysteine and Metamizole may falsely depress this assay. Reference Range HDL <40 mg/dL Low HDL Cholesterol HDL >or= 60 mg/dL High HDL Cholesterol Performed By: #### L 500.4050, L500.4100, L503.0105, L506.1000, L501.9985, L100.0100, L501.9520 #### [facility] [address] [place], [address] Cholesterol in LDL [Mass/Vol] 105 mg/dL Normal 0-130 [facility] Comment on above: Performed By: #### L 500.4050, L500.4100, L503.0105, L506.1000, L501.9985, L100.0100, L501.9520 #### [facility] [address] [place], [address] Cholesterol in VLDL [Mass/Vol] 21 mg/dL Normal 5-40 [facility] Comment on above: Performed By: #### L 500.4050, L500.4100, L503.0105, L506.1000, L501.9985, L100.0100, L501.9520 #### [facility] [address] [place], [address] Triglyceride [Mass/Vol] 106 mg/dL Normal [facility] Comment on above: Result Comment: The drugs N-Acetylcysteine and Metamizole may falsely depress this assay. Serum Triglycerides Reference Interval Normal <150 mg/dL Borderline high 150 - 199 mg/dL High 200 - 499 mg/dL Very High > or = 500 mg/dL Performed By: #### L 500.4050, L500.4100, L503.0105, L506.1000, L501.9985, L100.0100, L501.9520 #### [facility] [address] [place], [address] Thyroid Stim Hormone (TSH)on 06-18-2024 TSH 3.090 uIU/mL Normal 0.358-3.740 [facility] Comment on above: Performed By: #### L 500.4050, L500.4100, L503.0105, L506.1000, L501.9985, L100.0100, L501.9520 #### [facility] [address] [place], [address] Vitamin B12on 06-18-2024 Cobalamin (Vitamin B12) [Mass/Vol] 243 pg/mL Normal 211-911 [facility] Comment on above: Performed By: #### L 500.4050, L500.4100, L503.0105, L506.1000, L501.9985, L100.0100, L501.9520 #### [facility] [address] [place], [place], [address] Vitamin D,25 Hydroxyon 06-18 Vitamin D 25-OH 28.9 ng/mL Normal [facility] Comment on above: Result Comment: Nay min D 25(OH) Status Range Deficiency <20 ng/mL (50nmol/L) Insufficiency 20 - 30 ng/mL (50 - 75 nmol/L) Sufficiency 30 - 100 ng/mL (75 - 250 nmol/L) Toxicity >100 ng/mL (>250 nmol/L) Performed By: #### L 500.4050, L500.4100, L503.0105, L506.1000, L501.9985, L100.0100, L501.9520 #### [facility] [address] [place], [place], [id number] Absolute lymphocyte countOrd ered By: Carlos Alberto Figueroa on 03-03-2023 Lymphocytes Auto (Unsp spec) [#/Vol] 2.14 10*3/uL 0.83-4.51 [facility] Basophil percentageOrdered B y: Carlos Alberto Figueroa on 03-03-2023 Basophils/100 WBC (Bld) 0.2 % 0-1 [facility] Chloride [Moles/Vol] 106 mmol/L 98-107 [facility] Eosinophils/100 WBC (Bld) 1.3 % 0-5 [facility] Glucose [Mass/Vol] 111 mg/dL 74-106 [facility] Comment on above: Fasting Glucose resu lt from 100 to 125 mg/dL suggests IMPAIRED HOMEOSTASIS per A.D.A. criteria. Neutrophils (Bld) [#/Vol] 3.7 10*3/uL 2.0-7.7 [facility] Neutrophils/100 WBC (Bld) 57.6 % 47-70 [facility] Potassium [Moles/Vol] 3.7 mmol/L 3.5-5.1 [facility] Sodium [Moles/Vol] 138 mmol/L 136-145 [facility] WBC (Bld) [#/Vol] 6.4 10*3/uL 4.4-11.0 [facility] Blood erythrocytes count (nu mber/volume)Ordered By: Carlos Alberto Figueroa on 03-03-2023 RBC (Bld) [#/Vol] 4.13 10*6/uL 4.2-5.4 [facility] Blood hemoglobin measurement (mass/volume)Ordered By: Carlos Alberto Figueroa on 03-03-2023 Hemoglobin (Bld) [Mass/Vol] 13.1 g/dL 12.0-15.0 [facility] Blood lymphocytes/100 leukoc ytesOrdered By: Carlos Alberto Figueroa on 03-03-2023 Lymphocytes/100 WBC (Bld) 33.4 % 19-41 [facility] Blood monocytes/100 leukocyt esOrdered By: Carlos Alberto Figueroa on 03-03-2023 Monocytes/100 WBC (Bld) 7.2 % 0-10 [facility] Blood platelet mean volumeOr dered By: Carlos Alberto Figueroa on 03-03-2023 Platelet mean volume (Bld) [Entitic vol] 9.6 fL 6.2-12.0 [facility] Determination of erythrocyte mean corpuscular volume (MCV)Ordered By: Carlos Alberto Figueroa on 03-03-2023 MCV (RBC) [Entitic vol] 92.5 fL 81-99 [facility] Hematocrit Auto (Bld) [Volum e fraction]Ordered By: Carlos Alberto Figueroa on 03-03-2023 Hematocrit (Bld) [Volume fraction] 38.2 % 37-47 [facility] Laboratory - Chemistry and C hemistry - challengeOrdered By: Carlos Alberto Figueroa on 03-03-2023 CO2 [Moles/Vol] 25.0 mmol/L 21.0-32.0 [facility] Urea nitrogen/Creatinine [Mass ratio] 15.3 mg/mg 10-20 [facility] Laboratory - Hematology and Cell countsOrdered By: Carlos Alberto Figueroa on 03-03-2023 Erythrocyte distribution width (RBC) [Entitic vol] 42.9 fL 35.1-43.9 [facility] Erythrocyte distribution width (RBC) [Ratio] 12.6 % 11.6-14.6 [facility] Immature granulocytes/100 WBC (Bld) 0.300 % 0.0-0.9 [facility] Comment on above: IG% - Immature Granu locytes (promyelocytes, myelocytes and metamyelocytes) > 1% indicates that a LEFT SHIFT is Present. MCH (RBC) [Entitic mass] 31.7 pg 27.0-32.0 [facility] Nucleated RBC/100 WBC (Bld) [Ratio] 0 % 0-5 [facility] MCHC Auto (RBC) [Mass/Vol]Or dered By: Carlos Alberto Figueroa on 03-03-2023 MCHC (RBC) [Mass/Vol] 34.3 g/dL 32-36 [facility] No Panel InformationOrdered By: Carlos Alberto Figueroa on 03-03-2023 Estimated Creatinine Clearance Calc 78.52 ml/min [facility] Estimated GFR (MDRD) Amer 104 mL/min >60 [facility] Comment on above: GFR Calc Estimated GFR (MDRD) Non-Af Amer 86 mL/min >60 [facility] Comment on above: Non- GFR Calc Troponin I High Sensitivity < 3 pg/mL 3.0-54.0 [facility] Comment on above: Please Note: New Margo t Units and Gender Specific Reference Ranges. For more information see Policy Stat Procedure [place] High Sensitivity Troponin (TNIH) and attachments. Platelets bldOrdered By: Gabriella Figueroa on 03-03-2023 Platelets (Bld) [#/Vol] 280 10*3/uL 150-450 [facility] Serum or plasma calcium julia urement (mass/volume)Ordered By: Carlos Alberto Figueroa on 03-03-2023 Calcium [Mass/Vol] 8.6 mg/dL 8.5-10.1 [facility] Serum or plasma creatinine m easurement (mass/volume)Ordered By: Carlos Alberto Figueroa on 03-03-2023 Creatinine [Mass/Vol] 0.78 mg/dL 0.55-1.02 [facility] Comment on above: The validity of the calculated GFR & GFRAA in patients over 70 years has not been determined. Clinical correlation is essential. Serum or plasma urea nitroge n measurement (mass/volume)Ordered By: Carlos Alberto Figueroa on 03-03-2023 Urea nitrogen [Mass/Vol] 12 mg/dL 7-18 [facility] Thin prep Papanicolaou smear with manual screeningOrdered By: Carlos Alberto Figueroa on 03-03-2023 Thin prep Papanicolaou smear with manual screening 7 5-15 [facility] Absolute lymphocyte countOrd ered By: Dr. Gant on 12-08-2022 Lymphocytes Auto (Unsp spec) [#/Vol] 1.52 10*3/uL 0.83-4.51 [facility] Basophil percentageOrdered B y: Dr. Gant on 12-08-2022 Basophils/100 WBC (Bld) 0.4 % 0-1 [facility] Bilirubin [Mass/Vol] 0.40 mg/dL 0.20-1.00 [facility] Comment on above: For patients on eltr ombopag therapy, use of Dimension [place] TBIL is not recommended. Chloride [Moles/Vol] 108 mmol/L 98-107 [facility] Cholesterol [Mass/Vol] 168 mg/dL <200 [facility] Comment on above: <200 mg/dL Desirable 200-240 mg/dL Borderline >240 mg/dL High Risk Eosinophils/100 WBC (Bld) 1.7 % 0-5 [facility] Glucose [Mass/Vol] 108 mg/dL 74-106 [facility] Comment on above: Fasting Glucose resu lt from 100 to 125 mg/dL suggests IMPAIRED HOMEOSTASIS per A.D.A. criteria. Neutrophils (Bld) [#/Vol] 2.8 10*3/uL 2.0-7.7 [facility] Neutrophils/100 WBC (Bld) 59.0 % 47-70 [facility] Potassium [Moles/Vol] 4.1 mmol/L 3.5-5.1 [facility] Protein [Mass/Vol] 7.3 g/dL 6.4-8.2 [facility] Sodium [Moles/Vol] 140 mmol/L 136-145 [facility] Triglyceride [Mass/Vol] 41 mg/dL <199 [facility] Comment on above: The drugs N-Acetylcy steine and Metamizole may falsely depress this assay.Serum Triglycerides Reference Interval Normal <150 mg/dL Borderline high 150 - 199 mg/dL High 200 - 499 mg/dL Very High > or = 500 mg/dL WBC (Bld) [#/Vol] 4.8 10*3/uL 4.4-11.0 [facility] Blood erythrocytes count (nu mber/volume)Ordered By: Dr. Gant on 12-08-2022 RBC (Bld) [#/Vol] 4.43 10*6/uL 4.2-5.4 [facility] Blood hemoglobin measurement (mass/volume)Ordered By: Dr. Gant on 12-08-2022 Hemoglobin (Bld) [Mass/Vol] 13.4 g/dL 12.0-15.0 [facility] Blood lymphocytes/100 leukoc ytesOrdered By: Dr. Gant on 12-08-2022 Lymphocytes/100 WBC (Bld) 31.6 % 19-41 [facility] Blood monocytes/100 leukocyt esOrdered By: Dr. Gant on 12-08-2022 Monocytes/100 WBC (Bld) 7.1 % 0-10 [facility] Blood platelet mean volumeOr dered By: Dr. Gant on 12-08-2022 Platelet mean volume (Bld) [Entitic vol] 9.9 fL 6.2-12.0 [facility] Determination of erythrocyte mean corpuscular volume (MCV)Ordered By: Dr. Gant on 12-08-2022 MCV (RBC) [Entitic vol] 92.3 fL 81-99 [facility] Hematocrit Auto (Bld) [Volum e fraction]Ordered By: Dr. Gant on 12-08-2022 Hematocrit (Bld) [Volume fraction] 40.9 % 37-47 [facility] Laboratory - Chemistry and C hemistry - challengeOrdered By: Dr. Gant on 12-08-2022 ALP [Catalytic activity/Vol] 49 U/L 45-117 [facility] ALT [Catalytic activity/Vol] 28 U/L 13-56 [facility] CO2 [Moles/Vol] 27.0 mmol/L 21.0-32.0 [facility] Free T4 [Mass/Vol] 1.11 ng/dL 0.76-1.46 [facility] Globulin (S) [Mass/Vol] 3.6 g/dL 2.2-4.2 [facility] Urea nitrogen/Creatinine [Mass ratio] 19.7 mg/mg 10-20 [facility] Laboratory - Hematology and Cell countsOrdered By: Dr. Gant on 12-08-2022 Erythrocyte distribution width (RBC) [Entitic vol] 41.9 fL 35.1-43.9 [facility] Erythrocyte distribution width (RBC) [Ratio] 12.3 % 11.6-14.6 [facility] Immature granulocytes/100 WBC (Bld) 0.200 % 0.0-0.9 [facility] Comment on above: IG% - Immature Granu locytes (promyelocytes, myelocytes and metamyelocytes) > 1% indicates that a LEFT SHIFT is Present. MCH (RBC) [Entitic mass] 30.2 pg 27.0-32.0 [facility] Nucleated RBC/100 WBC (Bld) [Ratio] 0 % 0-5 [facility] MCHC Auto (RBC) [Mass/Vol]Or dered By: Dr. Gant on 12-08-2022 MCHC (RBC) [Mass/Vol] 32.8 g/dL 32-36 [facility] No Panel InformationOrdered By: Dr. Gant on 12-08-2022 Estimated GFR (MDRD) Amer 117 mL/min >60 [facility] Comment on above: GFR Calc Estimated GFR (MDRD) Non-Af Amer 96 mL/min >60 [facility] Comment on above: Non- GFR Calc Thyroid Stimulating Hormone (TSH) 2.24 uIU/mL 0.358-3.74 [facility] Platelets bldOrdered By: Dr. Gant on 12-08-2022 Platelets (Bld) [#/Vol] 282 10*3/uL 150-450 [facility] Serum or plasma albumin julia urement (mass/volume)Ordered By: Dr. Gant on 12-08-2022 Albumin [Mass/Vol] 3.7 g/dL 3.2-5.0 [facility] Serum or plasma albumin/glob ulin mass ratioOrdered By: Dr. Gant on 05-05-2023 Albumin/Globulin [Mass ratio] 1.0 {ratio} 0.9-2.4 [facility] Serum or plasma calcium julia urement (mass/volume)Ordered By: Dr. Gant on 12-08-2022 Calcium [Mass/Vol] 8.8 mg/dL 8.5-10.1 [facility] Serum or plasma cholesterol in HDL measurement (mass/volume)Ordered By: Dr. Gant on 12-08-2022 Cholesterol in HDL [Mass/Vol] 71 mg/dL >40 [facility] Comment on above: The drugs N-Acetylcy steine and Metamizole may falsely depress this assay. Reference Range HDL <40 mg/dL Low HDL Cholesterol HDL >or= 60 mg/dL High HDL Cholesterol Serum or plasma cholesterol in VLDL measurement (mass/volume)Ordered By: Dr. Gant on 12-08-2022 Cholesterol in VLDL [Mass/Vol] 8 mg/dL 5-40 [facility] Serum or plasma creatinine m easurement (mass/volume)Ordered By: Dr. Gant on 12-08-2022 Creatinine [Mass/Vol] 0.71 mg/dL 0.55-1.02 [facility] Comment on above: The validity of the calculated GFR & GFRAA in patients over 70 years has not been determined. Clinical correlation is essential. Serum or plasma low density lipoprotein (LDL) cholesterol measurement (mass/volume)Ordered By: Dr. Gant on 12-08-2022 Cholesterol in LDL [Mass/Vol] 89 mg/dL 0-130 [facility] Serum or plasma urea nitroge n measurement (mass/volume)Ordered By: Dr. Gant on 12-08-2022 Urea nitrogen [Mass/Vol] 14 mg/dL 7-18 [facility] Thin prep Papanicolaou smear with manual screeningOrdered By: Dr. Gant on 12-08-2022 Thin prep Papanicolaou smear with manual screening 18 U/L 15-37 [facility] Thin prep Papanicolaou smear with manual screening 5 5-15 [facility] EMERGENCY REPORTon 9 EMERGENCY REPORT [facility] EMERGENCY ROOM REPORT NAME ACCOUNT SEX AGE ADMIT DISCHARGE PT MED. RECORD# NUMBER DATE DATE TYPE CORTEZ RIDLEY [id number] F 38 11/13/18 11/13/18 3 [id number] ROOM: ER DATE OF : 1980 DICTATING [...] motor or sensory deficits are noted. 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 I asked her to have him recheck that wound, which obviously he will. Otherwise, keep the wound site clean and dry and let the sutures dissolve on their own. She does not have a family doctor, so I am going to refer her to [facility] for follow-up for a wound [...] Paco Mayen DO 11/13/18 20:46 JOB #: [id number] Transcribed By: cheryl 11/14/18 06:42 Electronically signed by: E-Sign: Dr. Paco Mayen D.O. 11/20/18 19:28 Page 2 of 2 CORTE[facility] RIDLEY Emergency Room Report Normal [facility] Vital Signs Date Time Vital Sign Value Performing Clinician Nasir streeter 01-16-2025 11:21-0400 Body height 160.[address] Ronak Gant MD Work Phone: [facility] 01-16-2025 11:21-0400 Body mass index (BMI) [Ratio] 28.5 kg/m2 Dr. Ronak Gant MD Work Phone: [facility] 01-16-2025 11:21-0400 Body temperature 98.9 [degF] Dr. Ronak Gant MD Work Phone: [facility] 01-16-2025 11:21-0400 Body weight 73.[address] Ronak Gant MD Work Phone: [facility] 01-16-2025 11:21-0400 Diastolic blood pressure 78 mm[Hg] Dr. Ronak Gant MD Work Phone: [facility] 01-16-2025 11:21-0400 Heart rate 72 /min Dr. Ronak Gant MD Work Phone: [facility] 01-16-2025 11:21-0400 Respiratory rate 16 /min Dr. Ronak Gant MD Work Phone: [facility] 01-16-2025 11:21-0400 SaO2% (BldA) [Mass fraction] 98 % Dr. Ronak Gant MD Work Phone: [facility] 01-16-2025 11:21-0400 Systolic blood pressure 104 mm[Hg] Dr. Ronak Gant MD Work Phone: [facility] 10-01-2023 09:25-0500 Body height 160.[address] Ronak Gant Work Phone: [facility] 10-01-2023 09:20-0500 Body mass index (BMI) [Ratio] 32.1 kg/m2 Dr. Ronak Gant Work Phone: [facility] 10-01-2023 09:20-0500 Body weight 82.[address] Ronak Gant Work Phone: [facility] 10-01-2023 09:20-0500 Diastolic blood pressure 78 mm[Hg] Dr. Ronak Gant Work Phone: [facility] 10-01-2023 09:20-0500 Systolic blood pressure 113 mm[Hg] Dr. Ronak Gant Work Phone: [facility] 07-06-2023 09:57-0500 Body mass index (BMI) [Ratio] 31.1 kg/m2 Dr. Ronak Gant Work Phone: [facility] 07-06-2023 09:57-0500 Body temperature 97.8 [degF] Dr. Ronak Gant Work Phone: [facility] 07-06-2023 09:57-0500 Body weight 79.[address] Ronak Gant Work Phone: [facility] 07-06-2023 09:57-0500 Diastolic blood pressure 78 mm[Hg] Dr. Ronak Gant Work Phone: [facility] 07-06-2023 09:57-0500 Heart rate 77 /min Dr. Ronak Gant Work Phone: [facility] 07-06-2023 09:57-0500 Respiratory rate 16 /min Dr. Ronak Gant Work Phone: [facility] 07-06-2023 09:57-0500 SaO2% (BldA) [Mass fraction] 97 % Dr. Ronak Gant Work Phone: [facility] 07-06-2023 09:57-0500 Systolic blood pressure 122 mm[Hg] Dr. Ronak Gant Work Phone: [facility] 03-03-2023 19:31-0400 Diastolic blood pressure 80 mm[Hg] Dr. Ronak Gant Work Phone: [facility] 03-03-2023 19:31-0400 Heart rate 84 /min Dr. Ronak Gant Work Phone: [facility] 03-03-2023 19:31-0400 Respiratory rate 18 /min Dr. Ronak Gant Work Phone: [facility] 03-03-2023 19:31-0400 SaO2% (BldA) [Mass fraction] 98 % Dr. Ronak Gant Work Phone: [facility] 03-03-2023 19:31-0400 Systolic blood pressure 122 mm[Hg] Dr. Ronak Gant Work Phone: [facility] 03-03-2023 17:59-0400 Body height 160.[address] Ronak Gant Work Phone: [facility] 03-03-2023 17:59-0400 Body mass index (BMI) [Ratio] 31.1 kg/m2 Dr. Ronak Gant Work Phone: [facility] 03-03-2023 17:59-0400 Body temperature 98 [degF] Dr. Ronak Gant Work Phone: [facility] 03-03-2023 17:59-0400 Body weight 79.[address] Ronak Gant Work Phone: [facility] 01-19-2023 10:28-0400 Body mass index (BMI) [Ratio] 30.2 kg/m2 Dr. Ronak Gant Work Phone: [facility] 01-19-2023 10:28-0400 Body temperature 97.6 [degF] Dr. Ronak Gant Work Phone: [facility] 01-19-2023 10:28-0400 Body weight 77.[address] Ronak Gant Work Phone: [facility] 01-19-2023 10:28-0400 Diastolic blood pressure 74 mm[Hg] Dr. Ronak Gant Work Phone: [facility] 01-19-2023 10:28-0400 Heart rate 86 /min Dr. Ronak Gant Work Phone: [facility] 01-19-2023 10:28-0400 Respiratory rate 18 /min Dr. Ronak Gant Work Phone: [facility] 01-19-2023 10:28-0400 SaO2% (BldA) [Mass fraction] 97 % Dr. Ronak Gant Work Phone: [facility] 01-19-2023 10:28-0400 Systolic blood pressure 108 mm[Hg] Dr. Ronak Gant Work Phone: [facility] 12-08-2022 10:33-0400 Body height 160.[address] Ronak Gant Work Phone: [facility] 12-08-2022 10:33-0400 Body mass index (BMI) [Ratio] 30.2 kg/m2 Dr. Ronak Gant Work Phone: [facility] 12-08-2022 10:33-0400 Body temperature 99.1 [degF] Dr. Ronak Gant Work Phone: [facility] 12-08-2022 10:33-0400 Body weight 77.[address] Ronak Gant Work Phone: [facility] 12-08-2022 10:33-0400 Diastolic blood pressure 88 mm[Hg] Dr. Ronak Gant Work Phone: [facility] 12-08-2022 10:33-0400 Heart rate 70 /min Dr. Ronak Gant Work Phone: [facility] 12-08-2022 10:33-0400 Respiratory rate 16 /min Dr. Ronak Gant Work Phone: [facility] 12-08-2022 10:33-0400 SaO2% (BldA) [Mass fraction] 98 % Dr. Ronak Gant Work Phone: [facility] 12-08-2022 10:33-0400 Systolic blood pressure 112 mm[Hg] Dr. Ronak Gant Work Phone: [facility] Encounters Encounter Date Encounter Type Care Provider Facility Start: 01-27-2025 ambulatory Ronak Shieldsi ty:[facility] Start: 01-22-2025 Encounter for genera l adult medical examination without abnormal findings Ronak Gant [facility] Start: 01-16-2025 End: 01-16-[address] Ronak Gant MD [facility] Work Phone: Start: 01-16-2025 End: 01-16-[address] Ronak Gant MD [facility] Start: 01-16-2025 End: 01-16-[address] Ronak Gant MD Work Phone: [facility] Work Phone: Start: 01-16-2025 End: 01-16-2025 ambulatory Ronak Gant Facility:[facility] Start: 06-18-2024 End: 06-18-2024 ambulatory Sadie Montilla [facility] Facility:[facility] Start: 12-10-[address] Ronak Gant MD Work Phone: [facility] Start: 10-02-2023 End: 10-02-[address] Ronak Gant Work Phone: [facility] Work Phone: Start: 10-02-2023 End: 10-02-[address] Ronak Gant Work Phone: [facility]-Laboratory, Specimen Work Phone: Start: 10-01-2023 End: 10-01-[address] Ronak Gant Work Phone: [facility] Start: 07-06-2023 End: 07-06-[address] Ronak Gant Work Phone: [facility] Work Phone: Start: 03-03-2023 End: 03-03-2023 Emergency department patient visit Dr. Ronak Gant Work Phone: [facility]-Emergency Department Work Phone: Start: 01-19-2023 End: 01-19-[address] Ronak Gant Work Phone: [facility] Work Phone: Start: 12-22-2022 End: 12-22-[address] Ronak Gant Work Phone: [facility] Work Phone: Start: 12-22-2022 End: 12-22-[address] Ronak Gant Work Phone: [facility]-Outpatient Breast Imaging Start: 12-08-[address] Ronak Gant Work Phone: [facility] Start: 12-08-2022 End: 12-08-[address] Ronak Gant Work Phone: [facility] Work Phone: Start: 12-08-2022 End: 12-08-[address] Ronak Gant Work Phone: [facility]-Laboratory, [facility] Start: 12-08-2022 End: 12-08-2022 Encounter for general adult medical examination without abnormal findings Dr. Ronak Gant Work Phone: [facility] Start: 12-08-2022 End: 12-08-[address] Ronak Gant Work Phone: [facility] Start: 11-13-2018 End: 11-13-2018 Emergency department patient visit PACO MARMOLEJO [facility] Procedures Date Procedure Procedure Detail Performing Clinician Start: 01-16-2025 Vitamin D, 25-hydrox y measurement Dr. Ronak Gant MD Work Phone: Comment on above: Vitamin D StatusDefi ciency: <20 ng/mL (50nmol/L)Insufficiency: 20-30 ng/mL (50-75 nmol/L)Sufficiency: 30-100 ng/mL (75-250 nmol/L)Toxicity: >100 ng/mL (>250 nmol/L) Start: 03-03-2023 Plain chest X-ray Dr. Panchito Gant Work Phone: Start: 12-22-2022 Screening mammography Marija Gant Work Phone: Plan of Treatment Date Care Activity Detail Author Start: 01-27-2025 MG Breast - bilateral Screening [facility] Start: 01-16-2025 Patient referral [facility] Work Phone: Start: 01-16-2025 CBC W Auto Differential panel - Blood [facility] Start: 01-16-2025 Cobalamin (Vitamin B12) [Mass/volume] in Serum or Plasma [facility] Start: 01-16-2025 Comprehensive metabolic 2000 panel - Serum or Plasma [facility] Start: 01-16-2025 Lipid 1996 panel - Serum or Plasma [facility] Start: 01-16-2025 Vitamin D, 25-hydroxy measurement [facility] Start: 10-02-2023 Liquid based cervical cytology screening [facility] Start: 03-03-2023 [facility] Alanine aminotransfe rase [Enzymatic activity/volume] in Serum or Plasma [facility] Albumin [Mass/volume ] in Serum or Plasma [facility] [facility] Alkaline phosphatase [Enzymatic activity/volume] in Serum or Plasma [facility] Anion gap in Serum or Plasma [facility] Bilirubin, total measurement [facility] BUN/Creatinine ratio [facility] Calcium [Mass/volume ] in Serum or Plasma [facility] Carbon dioxide, tota l [Moles/volume] in Central venous blood [facility] Cholesterol [Mass/vo lume] in Serum or Plasma [facility] Cholesterol in HDL [Mass/volume] in Serum or Plasma [facility] Creatinine [Mass/vol ume] in Serum or Plasma [facility] Electrocardiographic procedure [facility] Erythrocyte mean cor puscular volume determination [facility] Glucose [Mass/volume ] in Serum or Plasma [facility] Hematocrit [Volume F raction] of Blood [facility] Hemoglobin [Mass/vol ume] in Blood [facility] Leukocytes [#/volume] in Blood [facility] Low density lipoprot ein cholesterol measurement [facility] Mean corpuscular hem oglobin concentration determination [facility] Mean corpuscular hem oglobin determination [facility] Measurement of renal function [facility] MG Breast - bilatera l Screening [facility] MG Breast - bilatera l Screening [facility] Neutrophil count [facility] Neutrophil percent differential count [facility] Path report.final Dx Spec [facility] Patient Education ED Chest Pain, Uncertain Cause [facility] Work Phone: Patient referral [facility] Work Phone: Platelets [#/volume] in Blood [facility] Potassium measurement [facility] Red blood cell count [facility] Red cell distributio n width determination [facility] Serum chloride measurement [facility] Sodium measurement [facility] Total cholesterol:HD L ratio measurement [facility] Total protein measurement [facility] Triglycerides measurement [facility] Urea nitrogen [Mass/ volume] in Serum or Plasma [facility] VLDL cholesterol [place] [facility] [place] Payer Category Payer Self-pay [id number] 2023 Unknown [id number] 1980 Unknown [id number] Unknown [id number] Unknown ANTHEM [id number] Unknown [facility] [id number] Unknown [facility] *DO NOT USE* [id number] Unknown [id number] 2.16.8 [id number] Unknown [id number] 2.16.8 [id number] Unknown [id number] 2.16.8 [id number] Unknown [id number] [id number] [id number] Social History Date Type Detail Facility Start: 12-08-2022 End: 10-01-2023 Tobacco smoking status NHIS Unknown if ever smoked [facility] Start: 1980 Sex Assigned At Female [facility] Start: 10-01-2023 Tobacco smoking status NHIS Never smoked tobacco (finding) [facility] NEGATED: Highlighted row [facility] Mental Status Date Assessment Result Facility 03-03-2023 Cognitive function Voice/Name [facility] Work Phone: Evaluation note 01-16-2025 Note Date & Type Note Facility 01-16-2025 Evaluation note Diagnosis Onset Date Resolution Preventative health care acute January 16, 2025 11:14am Vitamin deficiency acute January 042024 11:14am Generalized anxiety disorder chronic January 16, 2025 11:14am Obesity (BMI 30.0-34.9) chronic J une 2024 11:14am [facility] Work Phone: Evaluation note Note Date & Type Note Facility Evaluation note Diagnosis Onset Date Health care maintenance acut e 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 Palpitations chronic [facility] Work Phone: Evaluation note Note Date & Type Note Facility Evaluation note Diagnosis Onset Date Health care maintenance acut e 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 Palpitations chronic Obesity (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.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) 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 Palpitations chronic [facility] Work Phone: Evaluation note Note Date & Type Note Facility Evaluation note Diagnosis Onset Date Generalized anxiety disorder chronic Palpitations chronic Encounter for routine gyneco logical examination noneactive [facility] Work Phone: Evaluation note Note Date & Type Note Facility Evaluation note No assessment information availa [facility] Work Phone: Summary Purpose Family History No Family History Records Found Relationship Condition Age at Onset Recorded Date/T willie grandmother Malignant neoplasm of colon Unknown mother Diabetes mellitus Unknown grandfather Myocardial infarction 74 Cerebrovascular accident (CVA) Unknown Advance Directives No Advanced Directives Records Found Advance Directive Response Recorded Date/ Time Living Will No March 03, 2023 5:58pm Power of Parts Product Analyst No March 03 5:58pm Advance Directive Response Recorded Date/ Time Living Will No August 01, 2 023 12:35pm Power of Parts Product Analyst No August 01, 2023 12:35pm Advance Directive Response Recorded Date/ Time Living Will No August 01 023 1:35pm Do you have a Healthcare Power of Parts Product Analyst? No August 01, 2023 1:35pm Chief Complaint and Reason for Visit Chief Complaint PARTS PRODUCT ANALYST. EST CARE - PPW S ENT [facility] for [facility] Intermittent chest pain Obesity (BMI 30.0-34.9) Palpitations Chief Complaint PARTS PRODUCT ANALYST. EST CARE - PPW S ENT SCREENING [facility] for [facility] Intermittent chest pain Obesity (BMI 30.0-34.9) Palpitations Chief Complaint PARTS PRODUCT ANALYST. 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 DATE CREATED AUTHOR AUTHOR'S ORGANIZ ATION 01/25/2025 [facility] Care Teams (unrecognized sec tion and [...] Inactive Member Role Status Dates Dr. Ronak aGnt MD Primary Care Provider Active Dr. Carlos [...] January 16, 2025 End: January 16, 2025 Sadie BORGES, PARTS PRODUCT ANALYST-C Primary Care Provider Activ e Start: January 16, 2025 End: January 16, 2025 Team Status: Active Member Role Status Dates Dr. Ronak Gant MD Primary Care Provider Active Start: January 16, 2025 Dr. Ronak Gant MD Attending Provider Active Start: January 16, 2025 Dr. Ronak Gant MD Referring Provider Active Start: January 16, 2025 Team Status: Inactive Member Role Status Dates Dr. Ronak Gant MD Primary Care Provider Active Start: January 16, 2025 End: January 16, 2025 Dr. Ronak Gant MD Attending Provider Active Start: January 16, 2025 End: January 16, 2025 Dr. Ronak Gant MD Referring Provider Active Start: January 16, 2025 End: January 16, 2025 Goals (unrecognized section and [...] BE BASED ON THE PRIMARY CLINICAL RECORDS. [email or web address]. provides no warranty or guarantee of the accuracy or completeness of information in this document.
== END | disposition home or self-care (01) ==
LOC: OPBI 12:09
PROVIDERS: PCP Internal Medicine; Referring Provider Internal Medicine; Visit Provider Internal Medicine
DX: Z12.31 Encounter for screening mammogram for malignant neoplasm of breast (principal)
CPT/HCPCS: 77063; 77067